=== PATIENT | female | born 1985 | race Hispanic/Latino ===

== ENCOUNTER 2016-12-30 13:11 | Emergency (ER) | payer OTHER ==
[~2016-12-30] VITALS: Ht 165.1 cm; Wt 63.5 kg
--- NOTE | 2016-12-30 13:33 | ED GENERAL ADULT ---
History of Present Illness General Chief Complaint: Abdominal Pain/Flank Pain Stated Complaint: LOWER LT ABDOMINAL PAIN Source: patient Exam Limitations: no limitations Vital Signs & Intake/Output Vital Signs & Intake/Output Vital Signs Date Time Temp Pulse Resp B/P B/P Pulse O2 O2 Flow FiO2 Mean Ox Delivery Rate 12/30 1814 97.6 79 18 136/86 100 Room Air 12/30 1425 98 Room Air 12/30 1315 97.1 91 20 113/75 98 Room Air ED Intake and Output 12/31 0000 12/30 1200 Intake Total 1000 Output Total Balance 1000 Intake, IV 1000 Patient 140 lb Weight Weight Reported by Patient Measurement Method Allergies Coded Allergies: No Known Allergies (12/30/16) Triage Note: PT TO ED C/O LLQ PAIN SINCE LAST NIGHT. C/O NAUSEA AND DIARRHEA. DENIES VOMITING. DENIES S/S. LMP LAST MONTH. Triage Nurses Notes Reviewed? yes Onset: Abrupt Duration: hour(s): Timing: recent history : No Patient currently breastfeeds: No HPI: 12/30/16 31-year-old female presents to the emergency department complaining of left lower quadrant abdominal pain. According to the patient she was in his usual state of health until today when she developed a sudden onset of left lower quadrant abdominal pain no vomiting but she did have some nausea and diarrhea. The onset of the symptoms was abrupt, the duration has been just today, the severity significant; as her symptoms required to come to the emergency department for care. She denies fever. She denies vaginal discharge. (ANTONY DIAMOND DO) Reconcile Medications Metronidazole 500 MG TABLET 1 TAB PO BID TRICHOMONIASIS Naproxen 500 MG TABLET 1 TAB PO BID PRN PAIN TAKE WITH FOOD (WOOD FRANCIS,CAROLA) Past History Travel History Traveled to [place] past 21 day No Medical History Any Pertinent Medical History? see below for history Surgical History Surgical History: tubal ligation Psychosocial History What is your primary language Turkmen Tobacco Use: Never used ETOH Use: occasional use Illicit Drug Use: denies illicit drug use Family History Hx Contributory? No (ANTONY DIAMOND DO) Review of Systems Review of Systems Constitutional: Denies: fever. EENTM: Reports: no symptoms. Respiratory: Denies: short of breath. Cardiovascular: Denies: chest pain. GI: Reports: abdominal pain. Genitourinary: Reports: no symptoms. Musculoskeletal: Reports: no symptoms. Skin: Denies: rash. Neurological/Psychological: Reports: no symptoms. Hematologic/Endocrine: Reports: no symptoms. (ANTONY DIAMOND DO) Physical Exam Physical Exam General Appearance: alert, awake, anxious, moderate distress Head: atraumatic, normal appearance Eyes: Bilateral: normal appearance, PERRL, EOMI. Ears, Nose, Throat: normal pharynx, normal ENT inspection Neck: normal inspection, supple, full range of motion Respiratory: normal breath sounds, chest non-tender Cardiovascular: regular rate/rhythm, edema Gastrointestinal: soft, tenderness (LLQ) Back: normal range of motion Extremities: normal range of motion, no edema Neurologic/Psych: no motor/sensory deficits, awake, alert, oriented x 3 Skin: intact, normal color, warm/dry Core Measures ACS in differential dx? No CVA/TIA Diagnosis: No Severe Sepsis Present: No Septic Shock Present: No (ANTONY DIAMOND DO) Progress Differential Diagnoses I considered the following diagnoses in my evaluation of the patient: [Ovarian cyst, pyelonephritis, diverticulitis, tubo-ovarian abscess, ovarian torsion, ectopic ] Plan of Care: Orders Procedure Date/time Status Add-on Test (ER Only) 12/30 1511 Active CHLAMYDIA-GC DNA PROBE 12/30 1413 Active URINALYSIS 12/30 1400 Complete HUMAN BETA HCG SCREEN 12/30 1400 Complete COMPREHENSIVE METABOLIC PANEL 12/30 1400 Complete CBC WITHOUT DIFFERENTIAL 12/30 1400 Complete Current Medications Sig/Nichol Start time Last Medication Dose Stop Time Status Admin Ceftriaxone Sodium 250 MG ONCE ONE 12/30 1745 CAN 12/30 (Rocephin) 12/30 1746 1750 Laboratory Tests 12/30/16 1441: Anion Gap 11, Estimated GFR > 60, BUN/Creatinine Ratio 8.3, Glucose 76, Calcium 9.3, Total Bilirubin 0.8, AST 19, ALT 32, Alkaline Phosphatase 64, Total Protein 7.3, Albumin 4.4, Globulin 2.9, Albumin/Globulin Ratio 1.5, Total Beta HCG NEGATIVE 12/30/16 1413: CBC w Diff NO MAN DIFF REQ, RBC 3.99 L, MCV 88.1, MCH 30.7, RDW 12.8, MPV 9.1, Gran % 78.1 H, Lymphocytes % 15.4 L, Monocytes % 5.5, Eosinophils % 0.7, Basophils % 0.3, Absolute Granulocytes 8.0 H, Absolute Lymphocytes 1.6, Absolute Monocytes 0.6, Absolute Eosinophils 0.1, Absolute Basophils 0, PUBS MCHC 34.8, Urine Color YEL, Urine Clarity CLEAR, Urine pH 7.0, Ur Specific [place] <= 1.005, Urine Protein NEG, Urine Ketones NEG, Urine Nitrite NEG, Urine Bilirubin NEG, Urine Urobilinogen 0.2, Ur Leukocyte Esterase SMALL H, Ur Microscopic SEDIMENT EXAMINED, Urine RBC RARE, Urine WBC 3-5 H, Ur Epithelial Cells FEW, Urine Bacteria FEW H, Micro UA Comment TRICHOMONAS SEEN H, Urine Hemoglobin TRACE-INTACT, Urine Glucose NEG Microbiology 12/30 141 URINE ROUT: GC DNA Probe - RECD 12/30 1412 URINE ROUT: Chlamydia DNA Probe (JAXON) - RECD 3:12 PM SIGNED OUT TO ME PENDING U/S. 4 PM PATIENT TO U/S (WOOD FRANCIS,CAROLA) Initial ED EKG: none (LOBO STARR,ANTONY Malin) Diagnostic Imaging: Viewed by Me: Ultrasound. Discussed w/RAD: Ultrasound. Radiology Impression: PATIENT: CATE DAVIS PRESENT AGE: 31 PATIENT ACCOUNT NO: [id number] : 86 LOCATION: [facility] ORDERING PHYSICIAN: ANTONY DIAMOND DO SERVICE DATE: 12/30/160 EXAM TYPE: US - US-TRANSVAGINAL EXAMINATION: US TRANSVAGINAL CLINICAL INFORMATION: Left lower quadrant pain evaluate torsion COMPARISON: None TECHNIQUE: Transabdominal and transvaginal pelvic ultrasound performed utilizing grayscale color flow and Doppler imaging FINDINGS: Uterus: 9 x 4 x 7.2 cm. Cervical length 3.2 cm. Endometrial thickness 1.2 cm. Total uterine volume 1 38 mL. Right ovary: 4.6 x 2.2 x 2.4 cm. Volume 12.7 mL. Multiple normal follicles seen. Normal flow. Left ovary: 3.3 x 1.6 x 2.6 cm for volume of 7.4 mL. Multiple normal appearing follicles seen. Normal vascular flow. 1 cm hypoechoic mass in the left ovary with increased through transmission. IMPRESSION: No evidence for ovarian torsion. Probable hemorrhagic\E\corpus luteum cyst in the left ovary DICTATED BY : EMILY GURROLA MD DATE/TIME DICTATED:12/30/161644 DATA SECURITY ADMINISTRATOR: KRIS DATE/TIME TRANSCRIBED:12/30/161644 CONFIDENTIAL, DO NOT COPY WITHOUT APPROPRIATE AUTHORIZATION. <Electronically signed in Other Vendor System> SIGNED BY: EMILY GURROLA MD 12/30/16 1700 (CAROLA MONTES MD) Departure Departure Condition: Stable Referrals: CRISTELA BUSCH MD (PCP/Family) Departure Forms: Customer Survey General Discharge Information Comments Labs were ordered including ultrasound. Patient will be signed out to Dr. Montes at 3 PM (ANTONY DIAMOND DO) Departure Time of Disposition: 1736 Disposition: HOME OR SELF CARE Clinical Impression Primary Impression: Ovarian cyst Secondary Impressions: Trichomoniasis Additional Instructions: PLEASE FOLLOW UP WITH YOUR OBGYN IN [facility]. TAKE THE PRESCRIPTION DIRECTED AT [facility]. RETURN NEEDED. Prescriptions: Current Visit Scripts Metronidazole 1 TAB PO BID #14 TAB Naproxen 1 TAB PO BID PRN PAIN #30 TAB TAKE WITH FOOD PA/BUSINESS SERVICES SALES REPRESENTATIVE Co-Sign Statement Statement: ED Attending supervision documentation- [] I saw and evaluated the patient. I have also reviewed all the pertinent lab results and diagnostic results. I agree with the findings and the plan of care as documented in the PA's/BUSINESS SERVICES SALES REPRESENTATIVE's documentation. [X] I have reviewed the ED Record and agree with the PA's/BUSINESS SERVICES SALES REPRESENTATIVE's documentation. [] Additions or exceptions (if any) to the PAs/BUSINESS SERVICES SALES REPRESENTATIVE's note and plan are summarized below: [] (CAROLA MONTES MD) Critical Care Note Critical Care Note Critical Care Time: non-applicable (ANTONY DIAMOND DO)
[2016-12-30 14:25] LABS: ABSOLUTE BASOPHIL COUNT 0 /CUMM (0.0-0.2); ABSOLUTE EOSINOPHIL COUNT 0.1 /CUMM (0.0-0.7); ABSOLUTE LYMPH COUNT 1.6 /CUMM (1.2-3.4); ABSOLUTE MONOCYTE COUNT 0.6 /CUMM (0.10-0.60); BASOPHIL % 0.3 % (0.0-2.0); EOSINOPHIL % 0.7 % (0-5); GRANULOCYTE % 78.1 % (42.2-75.2); HEMATOCRIT 35.2 % (37-47); MEAN CORPUSCULAR HGB 30.7 PG (27.0-31.0); MEAN CORPUSCULAR HGB CONC 34.8 G/DL (33.0-37.0); MEAN CORPUSCULAR VOLUME 88.1 FL (81.0-99.0); MEAN PLATELET VOLUME 9.1 FL (7.4-10.4); PLATELET COUNT 250 /CUMM (130-400); RBC DISTRIBUTION WIDTH 12.8 % (11.5-14.5); RED BLOOD CELL CT 3.99 /CUMM (4.20-5.40); WHITE BLOOD CELL COUNT 10.3 /CUMM (4.8-10.8)
--- NOTE | 2016-12-30 17:00 | ULTRASOUND REPORT ---
EXAMINATION: US TRANSVAGINAL CLINICAL INFORMATION: Left lower quadrant pain evaluate torsion COMPARISON: None TECHNIQUE: Transabdominal and transvaginal pelvic ultrasound performed utilizing grayscale color flow and Doppler imaging FINDINGS: Uterus: 9 x 4 x 7.2 cm. Cervical length 3.2 cm. Endometrial thickness 1.2 cm. Total uterine volume 1 38 mL. Right ovary: 4.6 x 2.2 x 2.4 cm. Volume 12.7 mL. Multiple normal follicles seen. Normal flow. Left ovary: 3.3 x 1.6 x 2.6 cm for volume of 7.4 mL. Multiple normal appearing follicles seen. Normal vascular flow. 1 cm hypoechoic mass in the left ovary with increased through transmission. IMPRESSION: No evidence for ovarian torsion. Probable hemorrhagic\E\corpus luteum cyst in the left ovary
[2016-12-30] MEDS ORDERED: NAPROXEN500 M2 PO (17:36)
[2016-12-30] MEDS ORDERED: METRONIDAZOLE500 M1 PO (17:36)
[2016-12-30 18:14] VITALS: BP 136/86
== END 2016-12-30 18:01 ==
LOC: ERH 13:11
PROVIDERS: Emergency Medicine
DX: N83.202 Unspecified ovarian cyst, left side (principal); A59.9 Trichomoniasis, unspecified
CPT/HCPCS: 81001; 87491; 87591; 96360; 96372; J0696

== ENCOUNTER 2017-02-07 06:37 | Inpatient (IN) | payer OTHER ==
[~2017-02-07] VITALS: Ht 165.1 cm; Wt 63.5 kg
[~2017-02-07 06:37] MED LIST: METRONIDAZOLE500 M1 PO; NAPROXEN500 M2 PO
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
--- NOTE | 2017-02-07 06:48 | NUR ---
IV ACCESS ESTABLISHED LFA 22G BY HAILEY MELGAR. H OF TUBAL LIGATION. BLOODS DRAWN AND SENT TO LAB. BOYFRIEND AT BEDSIDE
--- NOTE | 2017-02-07 06:53 | NUR ---
LABS DRAWN AND SENT BY THIS RN (SST, LAV, BLUE,. CHU, PINK)
--- NOTE | 2017-02-07 06:54 | NUR ---
PT MEDICATED WITH NS LITER #1 BOLUS PER EMAR
--- NOTE | 2017-02-07 06:55 | NUR ---
PT MEDICATED WITH 4MG ZOFRAN IV, 30MG TORADOL IV, AND 4MG MORPHINE IV PER EMAR BY RN ANTONIO
[2017-02-07 06:58] LABS: ABSOLUTE BASOPHIL COUNT 0 /CUMM (0.0-0.2); ABSOLUTE EOSINOPHIL COUNT 0 /CUMM (0.0-0.7); ABSOLUTE GRANULOCYTE CT 14.1 /CUMM (1.4-6.5); ABSOLUTE LYMPH COUNT 1.3 /CUMM (1.2-3.4); ABSOLUTE MONOCYTE COUNT 0.5 /CUMM (0.10-0.60); BASOPHIL % 0.1 % (0.0-2.0); EOSINOPHIL % 0.2 % (0-5); GRANULOCYTE % 88.3 % (42.2-75.2); HEMATOCRIT 40.5 % (37-47); MEAN CORPUSCULAR HGB 30.2 PG (27.0-31.0); MEAN CORPUSCULAR HGB CONC 33.5 G/DL (33.0-37.0); MEAN CORPUSCULAR VOLUME 90.3 FL (81.0-99.0); MEAN PLATELET VOLUME 8.8 FL (7.4-10.4); PLATELET COUNT 272 /CUMM (130-400); RBC DISTRIBUTION WIDTH 12.7 % (11.5-14.5); RED BLOOD CELL CT 4.48 /CUMM (4.20-5.40); WHITE BLOOD CELL COUNT 15.9 /CUMM (4.8-10.8)
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
--- NOTE | 2017-02-07 07:32 | NUR ---
PT SLEEPING AT THIS TIME, BOYFRIEND REMAINS AT BEDSIDE.
--- NOTE | 2017-02-07 07:53 | NUR ---
PT TO CT VIA STRETCHER AT THIS TIME.
--- NOTE | 2017-02-07 08:01 | NUR ---
PT RETURNS TO ROOM FROM CT, PT STATING "THE PAIN IS COMING BACK TO THE MIDDLE OF MY STOMACH NOW", MED WITH TORADOL 30MG IV, IVF' INFUSING ORDERED. PT AWAITING US.
--- NOTE | 2017-02-07 08:30 | NUR ---
PT TO US.
--- NOTE | 2017-02-07 08:43 | CT SCAN REPORT ---
EXAMINATION: CT ABDOMEN AND PELVIS WITH CONTRAST CLINICAL INFORMATION: Periumbilical abdominal pain. COMPARISON: Previous pelvic ultrasound 12/30/2016. TECHNIQUE: Multidetector volumetric imaging was performed of the abdomen and pelvis before and after the IV administration of 95 mL of Optiray intravenous contrast. Sagittal and coronal reformatted images were obtained on the technologist's workstation. DLP: 264 mGy-cm FINDINGS: LUNG BASES: The visualized lung bases are unremarkable. LIVER, GALLBLADDER, AND BILIARY TREE: The liver is normal in size, shape, and attenuation. No focal hepatic lesion or biliary ductal dilatation is present. The gallbladder is unremarkable with no evidence of radiopaque gallstones, gallbladder wall thickening, or obvious pericholecystic inflammatory changes. PANCREAS: Unremarkable. SPLEEN: Unremarkable. ADRENAL GLANDS: Unremarkable. KIDNEYS AND URETERS: The kidneys are normal in size, shape, and attenuation. No hydronephrosis, hydroureter, or calculi seen. No perinephric stranding. BLADDER: Unremarkable. GASTROINTESTINAL TRACT: The appendix is normal. There is evidence of diverticulosis. There is wall thickening and stranding of the fat of the distal left colon and sigmoid colon suggestive of diverticulitis or possibly colitis. There is a 2.5 x 2 cm air collection inferior to the sigmoid colon questionable for extraluminal air or possible contained perforation. There is an adjacent 4 x 5 cm fluid containing cystic structure in the left pelvis. It is uncertain whether this represents an abscess or a left ovarian cyst. Small and large bowel is otherwise normal. No free air is seen. ABDOMINAL WALL: No significant hernia is appreciated. LYMPH NODES: No enlarged lymph nodes are seen. There is a small amount of ascites in the pelvis. VASCULAR: Unremarkable. PELVIC VISCERA: The uterus and right adnexa are unremarkable. There is a 4 x 5 cm cyst or fluid collection in the left pelvis. Again, it is uncertain whether this represents a left ovarian cyst or could represent a left pelvic abscess. Follow up pelvic ultrasound recommended. There is a small amount of ascites in the pelvis. This may be slightly complex with Hounsfield units measuring 30 OSSEOUS STRUCTURES: Unremarkable. IMPRESSION: Diverticulosis. Long segment wall thickening of the distal left and sigmoid colon. Differential includes diverticulitis and colitis. 2 x 2.5 cm extraluminal air collection adjacent to the sigmoid colon questionable for contained perforation. 4 x 5 cm cystic lesion or fluid collection in the left pelvis. Differential would include a left ovarian cyst and abscess. Follow up pelvic ultrasound recommended. Small amount of fluid in the pelvis.
--- NOTE | 2017-02-07 09:37 | ULTRASOUND REPORT ---
EXAMINATION: US TRANSVAGINAL CLINICAL INFORMATION: Periumbilical abdominal pain. History of ovarian cyst. COMPARISON: CT scan of same day. TECHNIQUE: Transabdominal imaging was initially performed but because of limited visualization, transvaginal imaging was also performed. FINDINGS: UTERUS: The uterus is normal in size and appearance and is anteverted. Size measures 9.0 x 4.9 x 5.3 centers. Endometrial thickness measures 0.6 cm. Cervical length measures 3.6 cm. RIGHT OVARY: The right ovary is not identified. The ovary is unremarkable appearance on the recent CT scan. LEFT OVARY: The cyst seen on CT scan corresponds to a complex cyst measuring 3.9 x 2.4 x 3.3 cm. The appearance suggests hemorrhagic cyst. Abscess could cause similar appearance. Normal ovarian parenchyma is seen around the cyst showing normal color and spectral Doppler blood flow with normal venous and arterial waveforms with no evidence for torsion. Overall size of the left ovary measures 4.4 x 3.7 x 4.7 cm with a volume of 40 mL. There is a small to moderate amount of slightly complex free fluid in the pelvis. IMPRESSION: 1. Complex cyst left ovary consistent with hemorrhagic cyst. Abscess is possible and correlation with clinical findings will be helpful. Follow-up in 6 weeks' showing resolution is suggested. 2. Normal parenchyma is seen around the cyst in the left ovary with normal blood flow and no evidence for torsion. 3. Small to moderate slightly complex free fluid.
--- NOTE | 2017-02-07 10:31 | NUR ---
SURGICAL PA TEDDY IN TO EVAL.
--- NOTE | 2017-02-07 11:04 | NUR ---
PT C/O "CRUSHING CHEST PAIN, FEELS BETTER WHEN I BREATH THROUGH MY MOUTH", O2 NC 2L PLACED FOR COMFORT, VSS, EKG DONE AND SHOWN TO DR FITZGERALD.
--- NOTE | 2017-02-07 11:29 | NUR ---
MED WITH ATIVAN 0.5MG IV, IV FLAGYL 500MG INFUSING WITHOUT DIFFICULTY AT THIS TIME.
--- NOTE | 2017-02-07 12:47 | NUR ---
PER SURGICAL KILEY ESPINAL PLAN IS FOR PATIENT TO BE ADMITTED UNDER DR BENNETT SERVICES AND WILL NOT BE GOING TO THE OR FROM THE ED. UNSURE AT THIS TIME OF WHEN SHE MAY BE GOING TO OR
--- NOTE | 2017-02-07 12:59 | NUR ---
MEDICATED WITH ROCEPHIN PER ORDERS SURGICAL PA TEDDY
--- NOTE | 2017-02-07 13:29 | NUR ---
PT REQUESTS ICE CHIPS, OK PER SURGICAL PA TEDDY
--- NOTE | 2017-02-07 13:44 | NUR ---
PT AMBULATORY TO BATHROOM, URINE SPECIMEN CUP PROVIDED FOR SPECIMEN COLLECTION
--- NOTE | 2017-02-07 14:15 | NUR ---
PT MEDICATED WITH MORPHINE FOR PAIN /10 PER REQUEST/ORDERS.
--- NOTE | 2017-02-07 14:32 | NUR ---
PT COMPLAINS OF CHEST PAIN, RATES 10/10 POINTS TO L CHEST WALL. STATES IT FEELS THE SAME IT DID THIS MORNING. SURGICAL KILEY ESPINAL PAGED REGARDING SAME.
--- NOTE | 2017-02-07 14:46 | NUR ---
KILEY ESPINAL REQUESTED MD FITZGERALD TO ASSESS PATIENT WHO RESPONDED PATIENT WAS UNDER INPATIENT CARE AT THIS TIME. AGAIN SPOKE WITH KILEY ESPINAL WHO THEN ADVISED HE WOULD DO A CARDIOLOGY CONSULT. DR CROOK IN DEPARTMENT AT THIS TIME, SPOKE WITH KILEY ESPINAL AND IS CURRENTLY AT BEDSIDE.
--- NOTE | 2017-02-07 14:47 | Admission Core Measures ---
Admission Lab Results I reviewed the following labs: Laboratory Tests 02/07 0650 Chemistry Sodium (137 - 145 mmol/L) 143 Potassium (3.5 - 5.1 mmol/L) 4.0 Chloride (98 - 107 mmol/L) 109 H Carbon Dioxide (22 - 30 mmol/L) 18 L Anion Gap (5 - 16) 16 BUN (7 - 17 mg/dL) 4 L Creatinine (0.5 - 1.0 mg/dL) 0.6 Estimated GFR (>60 ml/min) > 60 BUN/Creatinine Ratio (7 - 25 %) 6.7 L Glucose (65 - 99 mg/dL) 121 H Calcium (8.4 - 10.2 mg/dL) 9.5 Total Bilirubin (0.2 - 1.3 mg/dL) 0.4 AST (14 - 36 U/L) 22 ALT (9 - 52 U/L) 32 Alkaline Phosphatase (<127 U/L) 67 Total Protein (6.3 - 8.2 g/dL) 8.0 Albumin (3.5 - 5.0 g/dL) 5.1 H Globulin (1.9 - 4.2 gm/dL) 2.9 Albumin/Globulin Ratio (1.1 - 2.2 %) 1.8 Amylase (30 - 110 U/L) 55 Lipase (23 - 300 U/L) 35 Total Beta HCG (NEGATIVE) NEGATIVE Hematology CBC w Diff NO MAN DIFF REQ WBC (4.8 - 10.8 /CUMM) 15.9 H RBC (4.20 - 5.40 /CUMM) 4.48 Hgb (12.0 - 16.0 G/DL) 13.5 Hct (37 - 47 %) 40.5 MCV (81.0 - 99.0 FL) 90.3 MCH (27.0 - 31.0 PG) 30.2 RDW (11.5 - 14.5 %) 12.7 Plt Count (130 - 400 /CUMM) 272 MPV (7.4 - 10.4 FL) 8.8 Gran % (42.2 - 75.2 %) 88.3 H Lymphocytes % (20.5 - 51.1 %) 8.4 L Monocytes % (1.7 - 9.3 %) 3.0 Eosinophils % (0 - 5 %) 0.2 Basophils % (0.0 - 2.0 %) 0.1 Absolute Granulocytes (1.4 - 6.5 /CUMM) 14.1 H Absolute Lymphocytes (1.2 - 3.4 /CUMM) 1.3 Absolute Monocytes (0.10 - 0.60 /CUMM) 0.5 Absolute Eosinophils (0.0 - 0.7 /CUMM) 0 Absolute Basophils (0.0 - 0.2 /CUMM) 0 PUBS MCHC (33.0 - 37.0 G/DL) 33.5 Admission Meds I reviewed the following Meds: Current Medications Sig/Nichol Start time Last Medication Dose Stop Time Status Admin Acetaminophen 1,000 MG Q6P PRN 02/07 1300 AC (Ofirmev) N/A 1 UNIT (No Carrier) Ceftriaxone Sodium 2,000 MG Q24H 02/08 1300 AC (Rocephin) Ceftriaxone Sodium 1,000 MG DAILY 02/07 1200 CAN (Rocephin) Dextrose/Sodium 1,000 ML .[id number] 02/07 1245 AC 02/07 Chloride 1317 (D5W-1/2 Normal Saline 1000ML) Heparin Sodium 5,000 UNIT Q8 02/07 1400 AC 02/07 (Porcine) 1427 Ketorolac 30 MG Q6P PRN 02/07 1300 AC Tromethamine (Toradol) Lorazepam 0.5 MG Q4P PRN 02/07 1300 AC (Ativan) Metronidazole 500 MG Q8H 02/07 1930 AC (Flagyl) N/A 1 UNIT (No Carrier) Morphine Sulfate 4 MG Q4-6 PRN PRN 02/07 1300 AC 02/07 (Morphine) 1417 Ondansetron HCl 4 MG Q8P PRN 02/07 1245 AC (Zofran) Acute Coronary Syndrome Inclusion Criteria ACS Diagnosis No Inpatient Core Measures LDL Reminder: If No, please order W/I first 24hr of stay Congestive Heart Failure Inclusion Criteria CHF Diagnosis No Cerebrovascular accident Inclusion Criteria CVA/TIA Diagnosis No Inpatient Core Measures Bedside Swallow Eval Reminder: If BSE failed, place ST order Antithrombotic Reminder: Order Antithrombotic Medication by end of day 2 Antithrombotic Reminder: Document Reason Antithrombotic Not ordered by end of day 2 AFIB/Flutter Reminder: If Present, add to problem list AFIB/Flutter Reminder: Order Anticoag Medication for pts with AFIB/Flutter Atherosclerosis Reminder: If Present, add to problem list LDL Reminder: If No, please order W/I first 24hr of stay PT Order Reminder: If No, please order Venous thromboembolism Inpatient Core Measures VTE Risk Factors: No Risk Factors [facility] prophylaxis d/t No contraindications No VTE Pharm Prophylaxis d/t No contraindications Inclusion Criteria - Per Current guidelines, there needs to be overlap - treatment for the first 5 days of Warfarin therapy. - Parenteral Anticoagulation (IV or SC) needs to be - given along with Warfarin therapy. VTE Diagnosis No VTE Type NONE VTE Confirmed by (Test) NONE Problem List As ranked by this Provider includes Assessment & Plan 1. Perforation of intestine due to diverticulitis of gastrointestinal tract HOME MEDS Home Med List No Known Home Medications
--- NOTE | 2017-02-07 15:00 | NUR ---
BED ASSIGNMENT 232 REPORT TO HAILEY BAHENA
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
--- NOTE | 2017-02-07 15:19 | NUR ---
spoke with dr mauricio and eric narvaez multiple times per both patient may go to [facility] and Dr Mauricio is recommending a repeat EKG done "later this afternoon". Eric Narvaez verbalized he would like the EKG done at 18:00 and stated he would put the order in.
--- NOTE | 2017-02-07 15:40 | NUR ---
RECEIVED REPORT ON PT AND NOTED ON STRETCHER AND DENIED ANY COMPLAINTS. NURSE SHRUTI WAS INFORMED OF CARDIAC CLEARANCE AND NEW UPDATE. PT LEFT FOR FLOOR
[2017-02-07 16:33] VITALS: BP 122/72
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
--- NOTE | 2017-02-07 18:48 | Cons- Cardiology ---
General Information and HPI Consulting Request Date of Consult: 02/07/17 Requested By: ANDI FRY DO Reason for Consult: Atypical chest discomfort Source of Information: patient, family Exam Limitations: no limitations History of Present Illness: Ms. Hernandez is a 31-year-old female with no significant past medical history presents with acute onset of lower abdominal pain that started approximately 4 AM this morning. She states that just prior to this onset abdominal pain she had a soft bowel movement without difficulty. She has no urinary complaints at this time. She denies any past history of similar abdominal pain. CAT scan this morning reveals diverticulitis with perforation and small fluid collection at the sigmoid colon. 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 She appears emotionally distressed. She also complained of 10 out of 10 crushing left chest pain which was evaluated by the emergency room staff, Dr. Snider, at which time an EKG was done which he cleared her of this being a cardiac event and he felt as though this was anxiety related to her sister's recent passing. She was given Ativan with some relief. At the time of my visit, the patient's primary complaint was abdominal pain. She notes intermittent waves of left sided chest discomfort which she notes that radiates upwards from her abdomen and is clearly worse with deep inspiration. In between inspirations, the discomfort dissipates. She has no prior history of chest discomfort or cardiac symptoms and has always been active. She denies any cardiovascular risk factors. Allergies/Medications Allergies: Coded Allergies: No Known Allergies (12/30/16) Home Med List: No Known Home Medications Current Medications: Current Medications Sig/Nichol Start time Last Medication Dose Route Stop Time Status Admin Acetaminophen 1,000 MG Q6P PRN 02/07 1300 AC N/A 1 UNIT IV Ampicillin Sodium/ 0 .STK-MED ONE 02/07 0957 DC Sulbactam Sodium .ROUTE Ampicillin Sodium/ 3,000 MG ONCE ONE 02/07 0945 DC 02/07 Sulbactam Sodium IV 02/07 1014 0958 Sodium Chloride 100 ML Ceftriaxone Sodium 2,000 MG Q24H 02/08 1300 AC IV Ceftriaxone Sodium 2,000 MG Q24H 02/07 1300 DC 02/07 IV 1259 Ceftriaxone Sodium 0 .STK-MED ONE 02/07 1259 DC .ROUTE Ceftriaxone Sodium 1,000 MG DAILY 02/07 1200 CAN IV Dextrose/Sodium 1,000 ML .[id number] 02/07 1245 AC 02/07 Chloride IV 1317 Heparin Sodium 0 .STK-MED ONE 02/07 1427 DC (Porcine) .ROUTE Heparin Sodium 5,000 UNIT Q8 02/07 1400 AC 02/07 (Porcine) SC 1427 Ketorolac 30 MG Q6P PRN 02/07 1300 AC 02/07 Tromethamine IV 1643 Ketorolac 0 .STK-MED ONE 02/07 0803 DC Tromethamine .ROUTE Ketorolac 30 MG ONCE ONE 02/07 0730 DC 02/07 Tromethamine IV 02/07 0731 0801 Ketorolac 30 MG ONCE ONE 02/07 0700 DC 02/07 Tromethamine IV 02/07 0701 0655 Ketorolac 0 .STK-MED ONE 02/07 0659 DC Tromethamine .ROUTE Lorazepam 0.5 MG Q4P PRN 02/07 1300 AC IV Lorazepam 0 .STK-MED ONE 02/07 1121 DC .ROUTE Lorazepam 0.5 MG ONCE ONE 02/07 1100 DC 07 IV 02/07 1101 1127 Metronidazole 500 MG Q8H 02/07 1930 AC N/A 1 UNIT IV Metronidazole 500 MG Q8H 02/07 1130 DC 02/07 N/A 1 UNIT IV 1128 Morphine Sulfate 0 .STK-MED ONE 02/07 1421 DC .ROUTE Morphine Sulfate 4 MG Q4-6 PRN PRN 02/07 1300 AC 02/07 IV 1814 Morphine Sulfate 4 MG ONCE ONE 02/07 0700 DC 02/07 IV 02/07 0701 0655 Morphine Sulfate 0 .STK-MED ONE 02/07 0700 DC .ROUTE Ondansetron HCl 4 MG Q8P PRN 02/07 1245 AC IV Ondansetron HCl 4 MG ONCE ONE 02/07 0700 DC 02/07 IV 02/07 0701 0655 Ondansetron HCl 0 .STK-MED ONE 02/07 0659 DC .ROUTE Sodium Chloride 1,000 ML BOLUS ONE 02/07 0945 DC 02/07 IV 02/07 1044 0958 Sodium Chloride 1,000 ML BOLUS ONE 02/07 0700 DC 02/07 IV 02/07 0759 0654 Past History Travel History Traveled to [place] past 21 day No Medical History Blood Transfusion Hx: No Neurological: migraine EENT: NONE Cardiovascular: NONE Respiratory: NONE Gastrointestinal: NONE Hepatic: hepatitis A Renal: NONE Musculoskeletal: NONE Psychiatric: NONE Endocrine: NONE Blood Disorders: anemia Cancer(s): cervical cancer MEDICAL ASSISTANT PRN/Reproductive: OVARIAN CYSTS Surgical History Surgical History: tubal ligation Psychosocial History Where Do You Live? Home Smoking Status: Former Smoker ETOH Use: occasional use Illicit Drug Use: denies illicit drug use Exam & Diagnostic Data Vital Signs and I&O Vital Signs Date Time Temp Pulse Resp B/P B/P Pulse O2 O2 Flow FiO2 Mean Ox Delivery Rate 02/07 1633 100.0 92 18 122/72 99 Room Air 02/07 1444 97.0 80 123/76 02/07 1216 98.0 88 20 115/71 02/07 1111 97.8 77 20 119/76 96 Room Air 02/07 1105 98.3 78 18 115/69 100 Nasal 2.0L Cannula 02/07 1101 98 Room Air Room Air 02/07 0803 96.8 70 16 109/62 96 Room Air 02/07 0641 97.1 75 20 109/76 98 Room Air Intake & Output 02/07 1600 02/07 0800 07/ 0000 / 1600 /08 0800 / 0000 Intake Total 1100 1000 Output Total Balance 1100 1000 Intake, IV 1100 1000 Patient 140 lb Weight Weight Reported by Patient Measurement Method Physical Exam: General Appearance Alert, Oriented X3, Cooperative; mild distress HEENT PERRLA Cardiovascular Regular Rate, Normal S1, Normal S2, no murmur, no chest wall tenderness Lungs Clear to Auscultation, Normal Air Movement Abdomen abdomen is diffusely tender to palpation, there is some mild guarding to palpation, bowel sounds are active, mild peritonitis is noted, abdomen is soft and nondistended Neurological Strength at 5/5 X4 Ext, Normal Tone, non focal Extremities No Edema, Normal Pulses Labs/John Results: Laboratory Tests 02/07 02/07 1740 0650 Chemistry Sodium (137 - 145 mmol/L) 143 Potassium (3.5 - 5.1 mmol/L) 4.0 Chloride (98 - 107 mmol/L) 109 H Carbon Dioxide (22 - 30 mmol/L) 18 L Anion Gap (5 - 16) 16 BUN (7 - 17 mg/dL) 4 L Creatinine (0.5 - 1.0 mg/dL) 0.6 Estimated GFR (>60 ml/min) > 60 BUN/Creatinine Ratio (7 - 25 %) 6.7 L Glucose (65 - 99 mg/dL) 121 H Calcium (8.4 - 10.2 mg/dL) 9.5 Total Bilirubin (0.2 - 1.3 mg/dL) 0.4 AST (14 - 36 U/L) 22 ALT (9 - 52 U/L) 32 Alkaline Phosphatase (<127 U/L) 67 Troponin I (< 0.11 ng/ml) Pending < 0.01 Total Protein (6.3 - 8.2 g/dL) 8.0 Albumin (3.5 - 5.0 g/dL) 5.1 H Globulin (1.9 - 4.2 gm/dL) 2.9 Albumin/Globulin Ratio (1.1 - 2.2 %) 1.8 Amylase (30 - 110 U/L) 55 Lipase (23 - 300 U/L) 35 Total Beta HCG (NEGATIVE) NEGATIVE Hematology CBC w Diff NO MAN DIFF REQ WBC (4.8 - 10.8 /CUMM) 15.9 H RBC (4.20 - 5.40 /CUMM) 4.48 Hgb (12.0 - 16.0 G/DL) 13.5 Hct (37 - 47 %) 40.5 MCV (81.0 - 99.0 FL) 90.3 MCH (27.0 - 31.0 PG) 30.2 RDW (11.5 - 14.5 %) 12.7 Plt Count (130 - 400 /CUMM) 272 MPV (7.4 - 10.4 FL) 8.8 Gran % (42.2 - 75.2 %) 88.3 H Lymphocytes % (20.5 - 51.1 %) 8.4 L Monocytes % (1.7 - 9.3 %) 3.0 Eosinophils % (0 - 5 %) 0.2 Basophils % (0.0 - 2.0 %) 0.1 Absolute Granulocytes (1.4 - 6.5 /CUMM) 14.1 H Absolute Lymphocytes (1.2 - 3.4 /CUMM) 1.3 Absolute Monocytes (0.10 - 0.60 /CUMM) 0.5 Absolute Eosinophils (0.0 - 0.7 /CUMM) 0 Absolute Basophils (0.0 - 0.2 /CUMM) 0 PUBS MCHC (33.0 - 37.0 G/DL) 33.5 Diagnostic Data EKG Results NSR; NOrmal Other Results Abdominal CT: IMPRESSION: Diverticulosis. Long segment wall thickening of the distal left and sigmoid colon. Differential includes diverticulitis and colitis. 2 x 2.5 cm extraluminal air collection adjacent to the sigmoid colon questionable for contained perforation. 4 x 5 cm cystic lesion or fluid collection in the left pelvis. Differential would include a left ovarian cyst and abscess. Follow up pelvic ultrasound recommended. Small amount of fluid in the pelvis Assessment/Plan Assessment/Plan Assessment: 1. Atypical chest discomfort - At the present time the patient's chest discomfort is very atypical for any cardiac etiology. The discomfort is clearly pleuritic in nature and her examination and ECG are otherwise normal. I suspect that the symptoms are referred from her abdominal issues and possibly related to diaphragmatic irritation. 2. Diverticular perforation 3. History of migraines. Recommendations: - I believe that the patient can safely be admitted to the general medical floor - Please repeat ECG later this evening and again in the AM - Check troponin now and again in 4-6 hours. - If symptoms persist, check echocardiogram prior to discharge to exclude pericardial effusion, etc. - Please call me with any changes. - Discussed with surgical PA Consult Acknowledgment - Thank you for your consult request.
[2017-02-07 20:02] VITALS: BP 120/70
--- NOTE | 2017-02-07 20:04 | NUR ---
PT C/O INCREASED PAIN 10/10 UNRELIEVED BY PREVIOUS MORPHINE AND IV TORADOL. SURGICAL PA TEDDY NOTIFIED. PER SURGICAL PA, GIVE IV TYLENOL. PT VITALS: 122/70 MANUALLY LYING, P 105, T 101.4, RR 18, 97% ON RA. SURGICAL PA AWARE OF VITAL SIGNS.
--- NOTE | 2017-02-07 20:29 | PN- General Surgery ---
Subjective Subjective: PATIENT CONT TO C/O 05/11 ABDOMENAL PAIN Objective Vital Signs and I&Os Vital Signs Date Time Temp Pulse Resp B/P B/P Pulse O2 O2 Flow FiO2 Mean Ox Delivery Rate 02/08 2008 101.4 02/07 2002 101.4 105 18 120/70 97 Room Air 02/07 1633 100.0 92 18 122/72 99 Room Air 02/07 1444 97.0 80 123/76 02/07 1216 98.0 88 20 115/71 02/07 1111 97.8 77 20 119/76 96 Room Air 02/07 1105 98.3 78 18 115/69 100 Nasal 2.0L Cannula 02/07 1101 98 Room Air Room Air 02/07 0803 96.8 70 16 109/62 96 Room Air 02/07 0641 97.1 75 20 109/76 98 Room Air Intake & Output 02/07 1600 09 0800 / 0000 / 1600 02/06 0800 07/08 0000 Intake Total 1100 1000 Output Total Balance 1100 1000 Intake, IV 1100 1000 Patient 140 lb Weight Weight Reported by Patient Measurement Method Physical Exam: SKIN WRM TO TOUCH ABDOMEN SOFT GUARDING TO LIGHT PALP IN ALL FOUR QUADRANTS +PSOAS SIGN Assessment/Plan Assessment/Plan WORSENING CLINICAL PICTURE CASE WS DISCUSSED DR FRY PLAN REPEAT CT SCAN OF ABDOMEN W/O CONTRAST INCREASE IVF TITRATE PAIN MEDS IV TYLENOL NOW FOR FEVER Core Measures/Miscellaneous Venous Thromboembolism VTE Risk Factors: No Risk Factors VTE Contraindications: No Contraindications VTE Diagnosis: No VTE Type: NONE VTE Confirmed by (Test): NONE Beta Zain Is Beta Zain a Home Med? No Antibiotics Is Patient on Antibiotics? Yes
--- NOTE | 2017-02-07 20:39 | NUR ---
PT DOWN TO CT SCAN AT THIS TIME VIA STRETCHER.
--- NOTE | 2017-02-07 21:01 | NUR ---
PT BACK FROM CT SCAN AT THIS TIME. AFTER ADMIN OF IV DILAUDID PT STATES "PAIN IS TOLERABLE NOW". RESTING IN BED, FAMILY AT BEDSIDE. PRECAUTIONS MAINTAINED.
--- NOTE | 2017-02-07 21:19 | CT SCAN REPORT ---
EXAMINATION: CT ABDOMEN AND PELVIS WITHOUT CONTRAST CLINICAL INFORMATION: Follow-up diverticulitis with possible perforation noted earlier today. COMPARISON: Exam same day TECHNIQUE: Multidetector volumetric imaging was performed from the superior aspect of the liver through the pubic symphysis. Sagittal and coronal reformatted images were obtained on the technologist's workstation. DLP: 337 mGy-cm FINDINGS: LUNG BASES: The visualized lung bases are unremarkable. LIVER, GALLBLADDER, AND BILIARY TREE: The liver is normal in size, shape, and attenuation. No focal hepatic lesion or biliary ductal dilatation is present. Layering contrast or sludge within the gallbladder lumen since previous presumably representing vicarious excretion of contrast. No acute inflammatory changes. PANCREAS: Unremarkable. SPLEEN: Unremarkable. ADRENAL GLANDS: Unremarkable. KIDNEYS AND URETERS: The kidneys are normal in size, shape, and attenuation. No hydronephrosis, hydroureter, or calculi seen. No perinephric stranding. BLADDER: Unremarkable. GASTROINTESTINAL TRACT: Long segment of inflammatory changes distal colon from the level of the distal descending to involve essentially the entire sigmoid colon. There are diverticula noted within these segments indicating relatively pronounced diverticulitis. Left adnexal fluid collection progressive now measuring approximately 5.7 x 4.4 cm most consistent with a peridiverticular abscess. No obstruction. No other focal lesion new in the interim. ABDOMINAL WALL: No significant hernia is appreciated. There are fat-containing lesions within both lateral gluteal subcutaneous tissues most consistent with lipomas or fat necrosis previous trauma. No acute findings. LYMPH NODES: Normal. VASCULAR: Unremarkable. PELVIC VISCERA: Unremarkable. OSSEOUS STRUCTURES: Unremarkable. IMPRESSION: 1. There is now marlyn perforation and free air in the upper abdomen from progressive severe diverticulitis. 2. Fluid collection within the left pelvis suspicious for a peridiverticular abscess progressive since baseline exam earlier the same day. This critical result was discussed with Dr. Martinez at 9:10 PM on 02/07/2017 and it was ascertained that the content and urgency of the report was understood at the time of direct communication.
[2017-02-07 21:25] VITALS: BP 110/70
--- NOTE | 2017-02-07 21:37 | NUR ---
PRE OP SCRUB COMPLETED, PRE OPERATIVE CHECKLIST COMPLETED. AWAITING DISTRIBUTION. PT AND FAMILY AWARE OF POC. PRECAUTIONS MAINTAINED.
--- NOTE | 2017-02-07 22:31 | NUR ---
PT DOWN TO OR VIA STRETCHER AT THIS TIME.
--- NOTE | 2017-02-08 01:32 | Operative Report ---
Operative/Inv Procedure Report Surgery Date: 02/08/17 Name of Procedure: Exploratory laparotomy, sigmoid resection, end colostomy (Hartmanns procedure) Pre-Operative Diagnosis: Perforated diverticulitis, diffuse peritonitis Post-Operative Diagnosis: Same Estimated Blood Loss: 50ml to 100ml Surgeon/Senior Materials Analyst: ANDI FRY DO Anesthesia: general endotracheal tube IV Fluids: 2100 cc Drains: 10 FR RLQ NISHA Drain, colostomy Specimens: Sigmoid colon Complications: None Condition: Stable Operative Indication: This is a 31-year-old female that presented to the emergency room with sudden onset of abdominal pain. The patient underwent a CT scan on admission which showed diverticulitis with a small abscess. The patient was admitted made nothing by mouth and started on IV antibiotics. Throughout the day however patients abdominal exam worsened and she now had diffuse peritonitis. The patient also spiked a fever and became tachycardic. A repeat CT scan was performed which showed diffuse free air in the abdominal cavity and an increase in the size of the abscess. Given the patient's deteriorating clinical status and CT findings, an exploratory laparotomy with colon resection and an end colostomy was discussed in detail. All risks including but not limited to bleeding, infection, abscess formation requiring drainage, possible need for further surgery, and injury to surrounding structures were discussed in detail. The patient and the family understood everything and decided to proceed. Operative/Procedure Note Note: The patient was brought to the operating room and placed on the table in supine position. Venodyne stockings were placed and adequate general endotracheal anesthesia was obtained. A TAP block was performed by anesthesia, Jose catheter was inserted, and the patient was prepped and draped in standard surgical fashion. A midline incision was made approximately 2-3 cm above the umbilicus down to the pubis. The incision was carried through the subcutaneous tissue to the fascia. The fascia was opened until we entered the peritoneum. Of note patient did have a prior abdominoplasty so it was difficult to identify the midline. Once the abdominal cavity was accessed the fascia was opened the length of the incision. Right away copious amount of purulent fluid was noted and suctioned out. The abdominal cavity was explored. Right away noted a portion of the sigmoid colon adherent to the sidewall and with dissection in abscess was identified and drained. The portion of the sigmoid colon was dissected away from the sidewall using blunt dissection until the sigmoid colon was freely up in the air. We then noted a portion of the sigmoid colon approximately 15 cm in length that appeared thickened and inflamed, no obvious large perforation was noted along that segment. We then identified healthy descending colon proximal to the inflamed bowel, the colon was then transected using a 80 millimeter blue JASMYN staple load. The sigmoid colon mesentery was then divided using LigaSure device maintaining hemostasis until what appeared to be the sigmoid rectal junction. At that point the colon was divided distally using an 80 mm blue JASMYN staple load. Staple line was examined and some bleeding was noted, that was controlled using 3-0 silk interrupted sutures. 2 interrupted Prolene sutures were placed on the staple line of the rectal stump for identification at the eventual reversal. The abdominal cavity was then irrigated with this approximately 5-6 L of warm normal saline until clear. The abdominal cavity was then examined and no further pathology was noted, no bleeding was noted. The descending colon was then mobilized along the white line of Toldt to assure adequate length of colon for creation of an end colostomy. Once it was adequately mobilized an area on the anterior abdominal wall was excised circumferentially down to the fascia. The fascia was then opened, the muscle was split, and the peritoneum was opened. The opening was dilated to allow adequate room for the colon. The descending colon was then brought through the opening. We had adequate room and adequate length of the bowel. The bowel appeared pink and viable. Following this a stab incision was made in the right lower quadrant and a 10 [place] flat NISHA drain was placed through the incision into the pelvis. The midline fascia was closed using #1 PDS suture. The wound was irrigated. The skin was closed using danyel. Sterile dressing was placed with packing in between the danyel. We then brought our attention to the colostomy, the stoma was opened and matured. The stoma was probed and appeared to have adequate room. The ostomy remained pink and viable. An ostomy appliance was placed. The patient was successfully extubated and transferred to the recovery room in stable condition. The patient tolerated the procedure well with no complications. Findings: Thick/inflamed portion of sigmoid colon, + abscess at site of perforation CC: JO-ANN FRANCIS,CRISTELA
[2017-02-08 03:15] VITALS: BP 110/70
--- NOTE | 2017-02-08 03:38 | NUR ---
PT UP TO FLOOR AT 0315 VIA STRETCHER. REPORT RECEIVED FROM SANJANA ICU NURSE. A&OX3 ON 2L NC, VSS, NO C/O PAIN OR DISCOMFORT. BLOOD IN PLACE. NISHA TO RT LOWER QUAD, MIDLINE DRESSING INTACT. LUNGS CLEAR, HEART SOUNDS PRESENT. WILL CONTINUE TO MONITOR.
--- NOTE | 2017-02-08 06:32 | NUR ---
PT HAS BLOOD SINCE UP FROM PACU, NO ORDER FOR BLOOD IN PT'S CHART. PAGED TEDDY CAO TO PLACE BLOOD ORDER. AWAITING ORDER.
[2017-02-08 06:51] VITALS: BP 100/64
--- NOTE | 2017-02-08 07:07 | PN- General Surgery ---
See Addendum Subjective Subjective: The patient was seen this morning postoperatively day #1. She reports that her pain is much better than prior to surgery. She has no other complaints and denies any chest pain, difficulty breathing, or nausea. Objective Vital Signs and I&Os Vital Signs Date Time Temp Pulse Resp B/P B/P Pulse O2 O2 Flow FiO2 Mean Ox Delivery Rate 02/08 0651 79.9 64 16 100/64 99 Nasal 2.0L Cannula 02/08 0315 94 Nasal 2.0L Cannula 02/08 0315 97.8 80 18 110/70 94 Nasal 2.0L Cannula 02/07 2125 99.4 / 2125 99.4 105 18 110/70 97 Room Air 02/08 2008 101.4 02/07 2002 101.4 105 18 120/70 97 Room Air 02/07 1633 100.0 92 18 122/72 99 Room Air 02/07 1444 97.0 80 123/76 / 1216 98.0 88 20 115/71 / 1111 97.8 77 20 119/76 96 Room Air 02/07 1105 98.3 78 18 115/69 100 Nasal 2.0L Cannula 02/07 1101 98 Room Air Room Air 02/07 0803 96.8 70 16 109/62 96 Room Air Intake & Output 02/08 0800 07/ 0000 07/09 1600 / 0800 / 0000 /08 1600 Intake Total 529 300 5548 1000 Output Total 765 400 Balance -599 546 6760 1000 Intake, IV 407 183 5541 1000 Intake, Oral 0 0 Number 0 Bowel Movements Output, 15 Drainage Output, Urine 750 400 Patient 140 lb 140 lb Weight Weight Reported by Patient Measurement Method Physical Exam: Gen.: Alert and in no obvious distress Skin: Warm and dry Abdomen: Softly distended, appropriate incisional tenderness, bowel sounds sluggish. Surgical incision is clean, dry, and intact. Colostomy is pink and viable with no output in the bag. His NISHA holding suction with serosanguineous drainage in the bulb. Extremities: Bilateral lower extremities warm without calf tenderness or significant edema. Assessment/Plan Assessment/Plan Assessment: 31-year-old female status post Rangel's procedure for perforated diverticulitis postoperative day 1. The patient is progressing as expected and her pain is under adequate control. Plan: Keep nothing by mouth with IV hydration until increased bowel function Continue current pain regiment GI and DVT prophylaxis Out of bed and ambulate IV antibiotics DC Jose catheter Follow-up morning laboratory studies Colostomy care Core Measures/Miscellaneous Venous Thromboembolism VTE Risk Factors: No Risk Factors VTE Contraindications: No Contraindications VTE Diagnosis: No VTE Type: NONE VTE Confirmed by (Test): NONE Beta Zain Is Beta Zain a Home Med? No Antibiotics Is Patient on Antibiotics? Yes
[2017-02-08 09:17] LABS: ABSOLUTE BASOPHIL COUNT 0 /CUMM (0.0-0.2); ABSOLUTE EOSINOPHIL COUNT 0 /CUMM (0.0-0.7); ABSOLUTE LYMPH COUNT 0.4 /CUMM (1.2-3.4); BASOPHIL % 0 % (0.0-2.0); EOSINOPHIL % 0 % (0-5); MEAN CORPUSCULAR HGB CONC 34.4 G/DL (33.0-37.0); WHITE BLOOD CELL COUNT 16.7 /CUMM (4.8-10.8)
[2017-02-08 09:25] LABS: ABSOLUTE MONOCYTE COUNT 0.3 /CUMM (0.10-0.60); GRANULOCYTE % 95.7 % (42.2-75.2); MEAN CORPUSCULAR HGB 30.3 PG (27.0-31.0); MEAN CORPUSCULAR VOLUME 88.1 FL (81.0-99.0); PLATELET COUNT 200 /CUMM (130-400); RBC DISTRIBUTION WIDTH 13.1 % (11.5-14.5); RED BLOOD CELL CT 3.61 /CUMM (4.20-5.40)
[2017-02-08 09:29] LABS: HEMATOCRIT 31.8 % (37-47)
--- NOTE | 2017-02-08 10:19 | NUR ---
PATIENT WITH COMPLAINTS OF RIGHT SIDED CHEST PRESSURE WHEN SITTING, ALSO WITH C/O INABILITY TO TAKE DEEOP BREATH, FIRST ATTEMPT OOB AFTER SURGERY, TOLERATED GETTING UP WELL, IST GIVEN, SURGICIAL PA LEVI SHETTY AWARE. NEEDS WITHIN REACH, SAFETY MAINTAINED.
--- NOTE | 2017-02-08 12:20 | PN- Cardiology ---
Subjective Subjective: Patient reports that she is feeling well. No current chest pain. No shortness of breath. No palpitations. No diaphoresis. Objective Vital Signs and I&Os Vital Signs Date Time Temp Pulse Resp B/P B/P Pulse O2 O2 Flow FiO2 Mean Ox Delivery Rate 02/08 08 97.9 02/08 0800 99 Nasal 2.0L Cannula 02/08 0651 79.9 64 16 100/64 99 Nasal 2.0L Cannula 02/08 0315 94 Nasal 2.0L Cannula 02/08 0315 97.8 80 18 110/70 94 Nasal 2.0L Cannula 02/07 2125 99.4 02/07 2125 99.4 105 18 110/70 97 Room Air 02/08 2008 101.4 02/07 2002 101.4 105 18 120/70 97 Room Air 02/07 1633 100.0 92 18 122/72 99 Room Air 02/07 1444 97.0 80 123/76 Intake & Output 02/08 1600 02/08 0800 02/08 0000 02/07 1600 02/08 0800 02/07 0000 Intake Total 958 840 3552 1000 Output Total 765 400 Balance -370 079 3627 1000 Intake, IV 827 636 4695 1000 Intake, Oral 0 0 Number 0 Bowel Movements Output, 15 Drainage Output, Urine 750 400 Patient 140 lb 140 lb Weight Weight Reported by Patient Measurement Method Physical Exam: Gen: NAD HEENT: normal Lungs: clear to auscultation, normal resp. effort Heart: RRR, S1, S2, no murmurs Abdomen: Soft, mild incisional tenderness, no masses Extremities: No clubbing, cyanosis, or edema. Neuro: Alert and oriented x 3, cranial nerves intact Current Medications: Current Medications Sig/Nichol Start time Last Medication Dose Route Stop Time Status Admin Acetaminophen 1,000 MG Q6P PRN 02/08 0345 AC N/A 1 UNIT IV Acetaminophen 1,000 MG Q6P PRN 02/07 1300 DC 02/07 N/A 1 UNIT IV 2008 Ceftriaxone Sodium 2,000 MG Q24H 02/08 1300 DC IV Ceftriaxone Sodium 2,000 MG Q24H 02/08 1300 AC IV Ceftriaxone Sodium 2,000 MG Q24H 02/07 1300 DC 02/07 IV 1259 Ceftriaxone Sodium 0 .STK-MED ONE 02/07 1259 DC .ROUTE Ceftriaxone Sodium 1,000 MG DAILY 02/07 1200 CAN IV Dextrose/Sodium 1,000 ML .Q8H 02/08 1046 AC 02/08 Chloride IV 1107 Dextrose/Sodium 1,000 ML .Q8H 02/07 1245 DC 02/07 Chloride IV 02/08 1045 2126 Docusate Sodium 100 MG BID 02/08 1117 AC 07 PO 1152 Famotidine 20 MG .STK-MED ONE 02/07 215 DC IV 02/07 215 Fentanyl Citrate 250 MCG .STK-MED ONE 02/07 215 DC IM 02/07 215 Heparin Sodium 5,000 UNIT Q8 02/08 1400 AC (Porcine) SC Heparin Sodium 0 .STK-MED ONE 02/07 1427 DC (Porcine) .ROUTE Heparin Sodium 5,000 UNIT Q8 02/07 1400 DC 02/07 (Porcine) SC 1427 Hydromorphone HCl 1 MG Q2-3 HRS NEEDED.. 02/08 0345 AC 02/08 IV 1118 Hydromorphone HCl 1 MG Q2-3 HRS NEEDED.. 02/07 2030 DC 02/07 IV 2023 Ketorolac 30 MG Q6P PRN 02/07 1300 DC 02/07 Tromethamine IV 1643 Lorazepam 0.5 MG Q4P PRN 02/08 0345 AC IV Lorazepam 0.5 MG Q4P PRN 02/07 1300 DC IV Metronidazole 500 MG Q8H 02/08 1130 AC 02/08 N/A 1 UNIT IV 1104 Metronidazole 500 MG Q8H 02/07 1930 DC 02/08 N/A 1 UNIT IV 02/08 1129 0400 Metronidazole 500 MG Q8H 02/07 1130 DC 02/07 N/A 1 UNIT IV 1128 Midazolam HCl 2 MG .STK-MED ONE 02/07 215 DC IM 02/07 2155 Morphine Sulfate 0 .STK-MED ONE 02/07 1421 DC .ROUTE Morphine Sulfate 4 MG Q4-6 PRN PRN 02/07 1300 DC 02/07 IV 1814 Ondansetron HCl 4 MG Q6P PRN 02/08 0700 AC IV Ondansetron HCl 4 MG Q8P PRN 02/08 0345 DC IV Ondansetron HCl 4 MG Q8P PRN 02/07 1245 DC IV Scopolamine HBr 1 PAT .STK-MED ONE 02/07 2245 [facility] 02/07 2246 Results Last 48 Hrs of Labs/Mics: Laboratory Tests 02/08/17 0852: Anion Gap 9, Estimated GFR > 60, BUN/Creatinine Ratio 8.0, CBC w Diff MAN DIFF ORDERED, RBC 3.61 L, MCV 88.1, MCH 30.3, RDW 13.1, MPV 9.0, Gran % 95.7 H, Lymphocytes % 2.4 L, Monocytes % 1.9, Eosinophils % 0, Basophils % 0 L, Absolute Granulocytes 16.0 H, Segmented Neutrophils 85 H, Band Neutrophils 11 H, Absolute Lymphocytes 0.4 L, Lymphocytes 2 L, Monocytes 2, Absolute Monocytes 0.3, Absolute Eosinophils 0, Absolute Basophils 0, Platelet Estimate ADEQUATE, Normocytic RBCs VERIFIED, Normochromic RBCs VERIFIED, PUBS MCHC 34.4 02/08/17 0610: Urinalysis LIGHT H, Urine Color YEL, Urine Clarity CLEAR, Urine pH 7.0, Ur Specific Hamel <= 1.005, Urine Protein NEG, Urine Ketones NEG, Urine Nitrite NEG, Urine Bilirubin NEG, Urine Urobilinogen 0.2, Ur Leukocyte Esterase NEG, Ur Microscopic SEDIMENT EXAMINED, Urine RBC RARE, Ur Epithelial Cells RARE, Urine Mucus RARE, Urine Hemoglobin TRACE-INTACT, Urine Glucose 500 H 02/08/17 0600: Sodium Cancelled, Potassium Cancelled, Chloride Cancelled, Carbon Dioxide Cancelled, Anion Gap Cancelled, BUN Cancelled, Creatinine Cancelled, BUN/ Creatinine Ratio Cancelled, CBC w Diff Cancelled, WBC Cancelled, RBC Cancelled, Hgb Cancelled, Hct Cancelled, MCV Cancelled, MCH Cancelled, RDW Cancelled, Plt Count Cancelled, MPV Cancelled, PUBS MCHC Cancelled 02/07/17 1740: Troponin I < 0.01 02/07/17 0650: Anion Gap 16, Estimated GFR > 60, BUN/Creatinine Ratio 6.7 L, Glucose 121 H, Calcium 9.5, Total Bilirubin 0.4, AST 22, ALT 32, Alkaline Phosphatase 67, Troponin I < 0.01, Total Protein 8.0, Albumin 5.1 H, Globulin 2.9, Albumin/ Globulin Ratio 1.8, Amylase 55, Lipase 35, Total Beta HCG NEGATIVE, CBC w Diff NO MAN DIFF REQ, RBC 4.48, MCV 90.3, MCH 30.2, RDW 12.7, MPV 8.8, Gran % 88.3 H , Lymphocytes % 8.4 L, Monocytes % 3.0, Eosinophils % 0.2, Basophils % 0.1, Absolute Granulocytes 14.1 H, Absolute Lymphocytes 1.3, Absolute Monocytes 0.5, Absolute Eosinophils 0, Absolute Basophils 0, PUBS MCHC 33.5 Assessment/Plan Assessment/Plan 1. Atypical chest discomfort, resolved 2. Diverticular perforation as per surgery 3. History of migraines. Plan: * No further inpatient workup unless the pain reoccurs * Follow up with Dr. Gutierrez in 2 weeks after discharge Continue telemetry? Not applicable
[2017-02-08 14:32] VITALS: BP 118/68
[2017-02-08 22:34] VITALS: BP 102/82
--- NOTE | 2017-02-09 00:01 | NUR ---
PATIENT ALERT AND ORIENTED X 3. FAMILY AT BEDSIDE. PATIENT C/O NOT WANTING TO SLEEP. PA NOTIFIED AND ATIVAN WAS ORDERED. PATIENT EDUCATED ON COLOSTOMY CARE. CONTINUE ON IV FLAGYL. PAIN MEDICATION GIVEN ORDERED. CALL LIGHT WITHIN REACH. WILL CONTINUE TO MONITOR.
--- NOTE | 2017-02-09 00:04 | NUR ---
PASTORAL CARE ALSO CALLED IN TO SEE PATIENT SHE SEEMED VERY EMOTIONAL ABOUT HER SISTER.
[2017-02-09 06:46] VITALS: BP 98/70
--- NOTE | 2017-02-09 07:25 | PN- General Surgery ---
Subjective Subjective: No acute events overnight. Patient admits to mild incisional abdominal pain and gas pain. Denies any nausea or emesis. Has been able to tolerate a clear liquid diet. Denies any fevers, chills, chest pain, or SOB. She is passing flatus since yesterday and has small amount of liquid stool this am. Voiding freely. Objective Vital Signs and I&Os Vital Signs Date Time Temp Pulse Resp B/P B/P Pulse O2 O2 Flow FiO2 Mean Ox Delivery Rate 02/09 0646 98.6 88 20 98/70 95 Room Air 02/08 2234 98.2 74 20 102/82 98 Room Air 02/08 1432 98.3 88 20 118/68 98 02/08 0800 97.9 02/08 0800 99 Nasal 2.0L Cannula Intake & Output 02/09 0802/09 0000 02/08 1600 02/08 0800 02/08 0000 02/07 1600 Intake Total 1200 1330 1250 512 395 2940 Output Total 15 655 1245 765 400 Balance 1185 675 5 -652 401 0385 Intake, IV 6750 037 7198 592 250 0430 Intake, Oral 200 480 250 0 0 Number 0 Bowel Movements Output, 15 30 45 15 Drainage Output, Stool 25 Output, Urine 600 1200 750 400 Patient 140 lb Weight Physical Exam: Gen.: Alert and oriented, lying in bed in NAD Skin: Warm and dry Cardiac: RRR Pulmonary: CTAB Abdomen: Surgical incision is clean, dry, and intact. Colostomy is pink and viable with small amount of liquid stool noted in bag, + flatus. + BS, mild soft distention, appropriate incisional tenderness. NISHA drain to bulb suction, + serosanguinous drainage. Extremities: Bilateral lower extremities warm without calf tenderness or significant edema. Current Medications: Current Medications Sig/Nichol Start time Last Medication Dose Route Stop Time Status Admin Acetaminophen 1,000 MG Q6P PRN 02/08 0345 AC N/A 1 UNIT IV Ceftriaxone Sodium 2,000 MG Q24H 02/08 1300 DC IV Ceftriaxone Sodium 2,000 MG Q24H 02/08 1300 AC 02/08 IV 1254 Dextrose/Sodium 1,000 ML .Q8H 02/08 1046 AC 02/08 Chloride IV 1107 Docusate Sodium 100 MG BID 02/08 1117 AC 02/08 PO 2107 Heparin Sodium 5,000 UNIT Q8 02/08 1400 AC 02/09 (Porcine) SC 0551 Hydromorphone HCl 1 MG Q2-3 HRS NEEDED.. 02/08 0345 AC 02/08 IV 2244 Ketorolac 30 MG Q6 02/08 1800 AC 02/09 Tromethamine IV 02/11 1201 0546 Lorazepam 0.5 MG Q4P PRN 02/08 0345 AC 02/08 IV 2245 Metronidazole 500 MG Q8H 02/08 1130 AC 02/09 N/A 1 UNIT IV 0410 Ondansetron HCl 4 MG Q6P PRN 02/08 0700 AC IV Patient Medication 1 ED .STK-MED ONE 02/08 1408 [place] [facility] 02/08 1409 Results Last 48 Hours of Labs: Laboratory Tests 02/08 02/08 0852 0610 Chemistry Sodium (137 - 145 mmol/L) 139 Potassium (3.5 - 5.1 mmol/L) 4.2 Chloride (98 - 107 mmol/L) 108 H Carbon Dioxide (22 - 30 mmol/L) 21 L Anion Gap (5 - 16) 9 BUN (7 - 17 mg/dL) 4 L Creatinine (0.5 - 1.0 mg/dL) 0.5 Estimated GFR (>60 ml/min) > 60 BUN/Creatinine Ratio (7 - 25 %) 8.0 Hematology CBC w Diff MAN DIFF ORDERED WBC (4.8 - 10.8 /CUMM) 16.7 H RBC (4.20 - 5.40 /CUMM) 3.61 L Hgb (12.0 - 16.0 G/DL) 10.9 L Hct (37 - 47 %) 31.8 L MCV (81.0 - 99.0 FL) 88.1 MCH (27.0 - 31.0 PG) 30.3 RDW (11.5 - 14.5 %) 13.1 Plt Count (130 - 400 /CUMM) 200 MPV (7.4 - 10.4 FL) 9.0 Gran % (42.2 - 75.2 %) 95.7 H Lymphocytes % (20.5 - 51.1 %) 2.4 L Monocytes % (1.7 - 9.3 %) 1.9 Eosinophils % (0 - 5 %) 0 Basophils % (0.0 - 2.0 %) 0 L Absolute Granulocytes (1.4 - 6.5 /CUMM) 16.0 H Segmented Neutrophils (42.2 - 75.2 %) 85 H Band Neutrophils (0.0 - 5.0 %) 11 H Absolute Lymphocytes (1.2 - 3.4 /CUMM) 0.4 L Lymphocytes (20.5 - 51.1 %) 2 L Monocytes (1.7 - 9.3 %) 2 Absolute Monocytes (0.10 - 0.60 /CUMM) 0.3 Absolute Eosinophils (0.0 - 0.7 /CUMM) 0 Absolute Basophils (0.0 - 0.2 /CUMM) 0 Platelet Estimate (ADEQUATE) ADEQUATE Normocytic RBCs VERIFIED Normochromic RBCs VERIFIED PUBS MCHC (33.0 - 37.0 G/DL) 34.4 Urines Urinalysis LIGHT H Urine Color (YEL,AMB,STR) YEL Urine Clarity (CLEAR) CLEAR Urine pH (5.0 - 8.0) 7.0 Ur Specific Roy (1.001 - 1.035) <= 1.005 Urine Protein (NEG,<30 MG/DL) NEG Urine Ketones (NEG) NEG Urine Nitrite (NEG) NEG Urine Bilirubin (NEG) NEG Urine Urobilinogen (0.1 - 1.0 EU/dl) 0.2 Ur Leukocyte Esterase (NEG) NEG Ur Microscopic SEDIMENT EXAMINED Urine RBC (0 - 5 /HPF) RARE Ur Epithelial Cells (NONE,FEW) RARE Urine Mucus (FEW,NONE) RARE Urine Hemoglobin (NEG) TRACE-INTACT Urine Glucose (N MG/DL) 500 H 07/10 07/09 0600 1740 Chemistry Sodium Cancelled Potassium Cancelled Chloride Cancelled Carbon Dioxide Cancelled Anion Gap Cancelled BUN Cancelled Creatinine Cancelled BUN/Creatinine Ratio Cancelled Troponin I (< 0.11 ng/ml) < 0.01 Hematology CBC w Diff Cancelled WBC Cancelled RBC Cancelled Hgb Cancelled Hct Cancelled MCV Cancelled MCH Cancelled RDW Cancelled Plt Count Cancelled MPV Cancelled PUBS MCHC Cancelled Assessment/Plan Assessment/Plan Assessment: 31-year-old female POD # 2 s/p Rangel's procedure for perforated diverticulitis now with + ostomy function, pain well controlled. Plan: Advance to full liquid diet Continue current pain regimen GI and DVT prophylaxis Out of bed and ambulate IV antibiotics Follow-up morning laboratory studies Colostomy care Core Measures/Miscellaneous Venous Thromboembolism VTE Risk Factors: No Risk Factors VTE Contraindications: No Contraindications VTE Diagnosis: No VTE Type: NONE VTE Confirmed by (Test): NONE Beta Zain Is Beta Zain a Home Med? No Antibiotics Is Patient on Antibiotics? Yes
[2017-02-09 08:38] LABS: ABSOLUTE BASOPHIL COUNT 0 /CUMM (0.0-0.2); ABSOLUTE EOSINOPHIL COUNT 0 /CUMM (0.0-0.7); ABSOLUTE GRANULOCYTE CT 8.7 /CUMM (1.4-6.5); ABSOLUTE LYMPH COUNT 1.3 /CUMM (1.2-3.4); ABSOLUTE MONOCYTE COUNT 0.4 /CUMM (0.10-0.60); BASOPHIL % 0.3 % (0.0-2.0); EOSINOPHIL % 0.3 % (0-5); HEMATOCRIT 27.7 % (37-47); MEAN CORPUSCULAR HGB 30.4 PG (27.0-31.0); MEAN CORPUSCULAR HGB CONC 33.6 G/DL (33.0-37.0); MEAN CORPUSCULAR VOLUME 90.5 FL (81.0-99.0); MEAN PLATELET VOLUME 8.6 FL (7.4-10.4); PLATELET COUNT 154 /CUMM (130-400); RBC DISTRIBUTION WIDTH 13.1 % (11.5-14.5); RED BLOOD CELL CT 3.06 /CUMM (4.20-5.40); WHITE BLOOD CELL COUNT 10.4 /CUMM (4.8-10.8)
[2017-02-09 09:47] LABS: GRANULOCYTE % 83.1 % (42.2-75.2)
--- NOTE | 2017-02-09 12:20 | NUR ---
SURGICAL PA AT BEDSIDE TO CHANGE PTS MIDLINE DRESSING AND TAKE OUT NISHA DRAIN.
[2017-02-09 15:27] VITALS: BP 112/68
--- NOTE | 2017-02-09 16:52 | NUR ---
ostomy education: pt seen this am to initiate ostomy education - pt eating lunch at time of consult - stated she is very comfortable in managing her ostomy, and that she has been taking care of it herself emptying, etc will cont with dc instructions in the am with pt, so she is ready to begin dc planning
--- NOTE | 2017-02-09 18:13 | NUR ---
PT C/O PAIN WHEN INSPIRATION/EXPIRATION. SURGICAL PA MADE AWARE. STAT EKG AND BLOODWORK ORDERED. SURGICAL PA AT BEDSIDE TO ASSESS.
[2017-02-09 18:40] LABS: ABSOLUTE BASOPHIL COUNT 0 /CUMM (0.0-0.2); ABSOLUTE EOSINOPHIL COUNT 0.1 /CUMM (0.0-0.7); ABSOLUTE GRANULOCYTE CT 8.2 /CUMM (1.4-6.5); ABSOLUTE LYMPH COUNT 1.4 /CUMM (1.2-3.4); ABSOLUTE MONOCYTE COUNT 0.4 /CUMM (0.10-0.60); BASOPHIL % 0.2 % (0.0-2.0); EOSINOPHIL % 0.9 % (0-5); GRANULOCYTE % 80.4 % (42.2-75.2); HEMATOCRIT 28.8 % (37-47); MEAN CORPUSCULAR HGB 29.9 PG (27.0-31.0); MEAN CORPUSCULAR VOLUME 90.8 FL (81.0-99.0); MEAN PLATELET VOLUME 8.7 FL (7.4-10.4); PLATELET COUNT 186 /CUMM (130-400); RBC DISTRIBUTION WIDTH 13.3 % (11.5-14.5); RED BLOOD CELL CT 3.17 /CUMM (4.20-5.40); WHITE BLOOD CELL COUNT 10.2 /CUMM (4.8-10.8)
--- NOTE | 2017-02-09 18:42 | RADIOLOGY REPORT ---
EXAMINATION: XR PORTABLE CHEST CLINICAL INFORMATION: Chest pain. Status post Rangel's procedure. COMPARISON: None TECHNIQUE: Portable sitting AP view of the chest was obtained. FINDINGS: The cardiomediastinal silhouette is unremarkable. The lungs and pleural spaces appear clear without evidence of congestion, consolidation, or significant appearing effusion or atelectasis. There is no evidence of pneumothorax or pulmonary edema. Included osseous structures appear largely unremarkable. IMPRESSION: Unremarkable examination.
--- NOTE | 2017-02-09 19:00 | NUR ---
PT REPORTS IMPROVEMENT IN PAIN TO R RIB CAGE WHEN BREATHING. STAT CHEST XRAY PERFORMED, EKG, AND LAB WORK DONE. PER SURGICAL PA, WORKUP WAS NORMAL. PT UPDATED ON POC. REMAINS WITHIN REACH. SAFETY MAINTAINED.
[2017-02-09 21:52] VITALS: BP 108/70
--- NOTE | 2017-02-10 01:10 | Event Note ---
Event Note Event Note: Was called to patient's bedside at approximately 1830 on 02/09/2017 for c/o right sided flank and upper back pain upon inspiration. Patient denied chest tightness or shortness of breath. She states that she was unable to lay flat due to the discomfort. She has a history of left sided atypical chest discomfort on this admission for which she was evaluated by cardiology. It was determined that the source of her discomfort was not cardiac related and likely due to diaphragmatic irritation. An ekg was obtained at the time of this new discomfort and showed sinus rhythm. A chest xray did not demonstrate a pneumothorax or any pathology from a cardiothorasic standpoint. Troponins were negative. Her hemodynamic status remained stable throughout this episode. The patient received IV dilaudid followed by iv toradol with good response. No further complaints of discomfort following the administration of the toradol. Dr. Martinez was made aware of the situation.
[2017-02-10 06:00] VITALS: BP 116/78
--- NOTE | 2017-02-10 07:16 | PN- General Surgery ---
See Addendum Subjective Subjective: The patient was seen this morning postoperatively day #3. She reports her pain is under adequate control and that her colostomy has increased output of stool and gas in the bag. She is tolerating a full liquid diet however she reports intermittent nausea and some burping. She has no other complaints at the current time and denied any chest pain, palpitations, or difficulty breathing. Objective Vital Signs and I&Os Vital Signs Date Time Temp Pulse Resp B/P B/P Pulse O2 O2 Flow FiO2 Mean Ox Delivery Rate 02/10 0600 98.2 63 18 116/78 98 Room Air 02/09 2152 99.0 82 18 108/70 97 02/09 1527 98.3 81 20 112/68 100 Intake & Output 02/10 0802/10 0000 02/09 1600 02/09 0802/09 0000 02/08 1600 Intake Total 9498 424 9592 1330 1250 Output Total 15 655 1245 Balance 8892 000 7186 675 5 Intake, IV 227 376 3356 850 1000 Intake, Oral 700 600 200 480 250 Output, 15 30 45 Drainage Output, Stool 25 Output, Urine 600 1200 Patient 140 lb Weight Physical Exam: Gen.: Alert and in no obvious distress Skin: Warm and dry Abdomen: Soft, mildly distended, appropriate incisional tenderness, bowel sounds positive. Midline incision is clean, dry, and intact. Colostomy is pink and viable with a moderate amount of loose stool in the bag. Extremities: Bilateral lower extremities are warm without calf tenderness or significant edema. Assessment/Plan Assessment/Plan Assessment: 31-year-old female status post Rangel's procedure for perforated diverticulitis postoperative day #3. The patient is progressing as expected and her bowel function is slowly improving. Plan: Continue on full liquid diet until less nausea IV antibiotics PRN pain medication, antiemetics, antipyretics Out of bed and ambulate GI and DVT prophylaxis Daily dry dressing change and ostomy care Follow-up morning laboratory studies Incentive spirometry Strict I's and O's Core Measures/Miscellaneous Venous Thromboembolism VTE Risk Factors: No Risk Factors VTE Contraindications: No Contraindications VTE Diagnosis: No VTE Type: NONE VTE Confirmed by (Test): NONE Beta Zain Is Beta Zain a Home Med? No Antibiotics Is Patient on Antibiotics? Yes
[2017-02-10 10:34] LABS: ABSOLUTE BASOPHIL COUNT 0 /CUMM (0.0-0.2); ABSOLUTE EOSINOPHIL COUNT 0.1 /CUMM (0.0-0.7); ABSOLUTE GRANULOCYTE CT 5.2 /CUMM (1.4-6.5); ABSOLUTE LYMPH COUNT 0.9 /CUMM (1.2-3.4); ABSOLUTE MONOCYTE COUNT 0.4 /CUMM (0.10-0.60); BASOPHIL % 0.3 % (0.0-2.0); EOSINOPHIL % 1.7 % (0-5); GRANULOCYTE % 78.9 % (42.2-75.2); HEMATOCRIT 26.3 % (37-47); MEAN CORPUSCULAR HGB 29.8 PG (27.0-31.0); MEAN CORPUSCULAR VOLUME 90.3 FL (81.0-99.0); PLATELET COUNT 154 /CUMM (130-400); RBC DISTRIBUTION WIDTH 12.9 % (11.5-14.5); RED BLOOD CELL CT 2.91 /CUMM (4.20-5.40); WHITE BLOOD CELL COUNT 6.6 /CUMM (4.8-10.8)
--- NOTE | 2017-02-10 11:58 | NUR ---
INTO ROOM WITH SURGICAL PA WHEN CHANGING DRESSING, OSTOMY APPLIANCE TRIMMED TO MAKE ROOM FOR DRESSING BY PA, SURGICAL SITE CLEAN AND DRY, SMALL OPEN AREA TO UPPER PORTION OF SURGICAL SITE, PACKED WITH FLUFF WET WITH SALINE BY SURGICAL PA, ABDOMEN APPEARS TO BE SOFT AND DISTENDED, PATIENT WITH NO COMPLAINTS OF PAIN, NEEDS IN REACH, SAFETY MAINTAINED.
--- NOTE | 2017-02-10 13:03 | PN- Cardiology ---
Subjective Subjective: Clinically stable from a cardiac perspective. No further chest discomfort since surgery. Objective Vital Signs and I&Os Vital Signs Date Time Temp Pulse Resp B/P B/P Pulse O2 O2 Flow FiO2 Mean Ox Delivery Rate 02/10 06 98.2 63 18 116/78 98 Room Air 02/09 2152 99.0 82 18 108/70 97 02/09 1527 98.3 81 20 112/68 100 Intake & Output 02/10 1600 02/10 0800 02/10 0000 02/09 1600 02/09 0800 02/09 0000 Intake Total 4082 110 9733 1330 Output Total 15 655 Balance 1857 850 6155 675 Intake, IV 958 830 6305 850 Intake, Oral 700 600 200 480 Output, 15 30 Drainage Output, Stool 25 Output, Urine 600 Patient 140 lb Weight Current Medications: Current Medications Sig/Nichol Start time Last Medication Dose Route Stop Time Status Admin Acetaminophen 1,000 MG Q6P PRN 02/08 0345 AC N/A 1 UNIT IV Ceftriaxone Sodium 2,000 MG Q24H 02/08 1300 AC 02/10 IV 1150 Docusate Sodium 100 MG BID 02/08 1117 AC 02/10 PO 1150 Heparin Sodium 5,000 UNIT Q8 02/08 1400 AC 02/10 (Porcine) SC 0558 Hydromorphone HCl 1 MG Q2-3 HRS NEEDED.. 02/08 0345 DC 02/09 IV 1821 Ketorolac 30 MG Q6 02/08 1800 AC 02/10 Tromethamine IV 02/11 1201 1150 Lorazepam 0.5 MG Q4P PRN 02/08 0345 AC 02/10 IV 0509 Metoclopramide HCl 5 MG Q6 02/10 1200 AC 02/10 IV 1150 Metronidazole 500 MG Q8H 02/08 1130 AC 02/10 N/A 1 UNIT IV 1150 Ondansetron HCl 4 MG Q6P PRN 02/08 0700 AC 02/10 IV 0458 Oxycodone HCl 5 MG Q4-6 PRN PRN 02/10 1015 AC PO Oxycodone HCl 10 MG Q4-6 PRN PRN 02/10 1015 AC PO Potassium Chloride 20 MEQ Q13H 02/09 0945 AC 02/10 Dextrose/Sodium 1,000 ML IV 0747 Chloride Results Last 48 Hrs of Labs/Mics: Laboratory Tests 02/10/17 0724: Anion Gap 8, Estimated GFR > 60, BUN/Creatinine Ratio 8.0, CBC w Diff NO MAN DIFF REQ, RBC 2.91 L, MCV 90.3, MCH 29.8, RDW 12.9, MPV 10.0, Gran % 78.9 H, Lymphocytes % 13.7 L, Monocytes % 5.4, Eosinophils % 1.7, Basophils % 0.3, Absolute Granulocytes 5.2, Absolute Lymphocytes 0.9 L, Absolute Monocytes 0.4, Absolute Eosinophils 0.1, Absolute Basophils 0, PUBS MCHC 33.0 02/09/17 1830: Anion Gap 11, Estimated GFR > 60, BUN/Creatinine Ratio 8.3, Troponin I < 0.01, CBC w Diff NO MAN DIFF REQ, RBC 3.17 L, MCV 90.8, MCH 29.9, RDW 13.3, MPV 8.7, Gran % 80.4 H, Lymphocytes % 14.1 L, Monocytes % 4.4, Eosinophils % 0.9, Basophils % 0.2, Absolute Granulocytes 8.2 H, Absolute Lymphocytes 1.4, Absolute Monocytes 0.4, Absolute Eosinophils 0.1, Absolute Basophils 0, PUBS MCHC 33.0 02/09/17 0821: Anion Gap 8, Estimated GFR > 60, BUN/Creatinine Ratio 8.3, Phosphorus 2.1 L, Magnesium 1.9, CBC w Diff NO MAN DIFF REQ, RBC 3.06 L, MCV 90.5, MCH 30.4, RDW 13.1, MPV 8.6, Gran % 83.1 H, Lymphocytes % 12.6 L, Monocytes % 3.7, Eosinophils % 0.3, Basophils % 0.3, Absolute Granulocytes 8.7 H, Absolute Lymphocytes 1.3, Absolute Monocytes 0.4, Absolute Eosinophils 0, Absolute Basophils 0, PUBS MCHC 33.6 Assessment/Plan Assessment/Plan Assessment: 1. Atypical chest discomfort - stable and resolved 2. Diverticular perforation-continue as per the surgical service 3. History of migraines. Recommendations: -The patient remains totally stable at the present time with no recurrence of any symptoms. For now I do not see any reason for any further cardiac evaluation. I discussed everything with the patient. The patient will call me in the future if there are any issues that should arise, otherwise, I do not see any reason for cardiology follow-up at the present time. Continue telemetry? No
[2017-02-10 13:55] VITALS: BP 122/80
[2017-02-10 22:24] VITALS: BP 127/78
[2017-02-11 06:00] VITALS: BP 134/80
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
--- NOTE | 2017-02-11 08:24 | Patient Discharge Instructions ---
Discharge Instructions General Discharge Information You were seen/treated for: Perforated diverticulitis, diffuse peritonitis You had these procedures: Surgery Date: 02/08/17 Name of Procedure: Exploratory laparotomy, sigmoid resection, end colostomy (Hartmanns procedure) Watch for these problems: fever>101.3, increased pain, redness/swelling/drainage Call Surgeon to remove: Kathy No bath, but you may shower: Yes Other wound care: dry guaze dressing change daily, midline incision. keep incision clean & dry. no bathing, but showering is ok. Special Instructions: colostomy care Diet Continue normal diet: No Recommended Diet: Low Residue Activity Full Activity/No Limits: No Activity Self Limited: Yes Pounds, do NOT lift more than: 10 Other activity limits: no heavy lifting. no strenuous activity. Acute Coronary Syndrome Inclusion Criteria At DC or during hospital stay patient has or had the following: ACS DIAGNOSIS No Discharge Core Measures Meds if any: Prescribed or Continued at Discharge Meds if any: NOT Prescribed or Continued at Discharge Congestive Heart Failure Inclusion Criteria At DC or during hospital stay patient has or had the following: CHF DIAGNOSIS No Discharge Core Measures Meds if any: Prescribed or Continued at Discharge Meds if any: NOT Prescribed or Continued at Discharge Cerebrovascular accident Inclusion Criteria At DC or during hospital stay patient has or had the following: CVA/TIA Diagnosis No Discharge Core Measures Meds if any: Prescribed or Continued at Discharge Meds if any: NOT Prescribed or Continued at Discharge Venous thromboembolism Inclusion Criteria VTE Diagnosis No VTE Type NONE VTE Confirmed by (Test) NONE Discharge Core Measures - Per Current guidelines, there needs to be overlap - treatment for the first 5 days of Warfarin therapy. - If discharged on Warfarin prior to 5 days of - overlap therapy, the patient will need to be - assessed for post discharge needs including - *Post discharge parental anticoagulation - *Warfarin and/or parental anticoagulation education - *Follow up date to check INR post discharge At least 5 days overlap therapy as Inpatient No Meds if any: Prescribed or Continued at Discharge Note: Overlap Therapy is Warfarin and Anticoagulant Meds if any: NOT Prescribed or Continued at Discharge
[2017-02-11] MEDS ORDERED: DOCUSATE SODIU100 M3 PO (08:30)
[2017-02-11] MEDS ORDERED: PERCOCET 5-3251 EACH PO (08:30)
[2017-02-11] MEDS ORDERED: ZOFRAN ODT4 M1 SL (08:30)
[2017-02-11] MEDS ORDERED: FLAGYL500 MG PO (08:30)
[2017-02-11] MEDS ORDERED: CIPRO500 M1 PO (08:30)
[2017-02-11] MEDS ORDERED: ATIVAN0.5 M1 PO (08:32)
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
[2017-02-11 09:02] LABS: ABSOLUTE BASOPHIL COUNT 0 /CUMM (0.0-0.2); ABSOLUTE EOSINOPHIL COUNT 0.1 /CUMM (0.0-0.7); ABSOLUTE GRANULOCYTE CT 3.8 /CUMM (1.4-6.5); ABSOLUTE MONOCYTE COUNT 0.4 /CUMM (0.10-0.60); BASOPHIL % 0.6 % (0.0-2.0); EOSINOPHIL % 2.3 % (0-5); GRANULOCYTE % 70.7 % (42.2-75.2); HEMATOCRIT 26.9 % (37-47); MEAN CORPUSCULAR HGB 30.6 PG (27.0-31.0); MEAN CORPUSCULAR HGB CONC 34.2 G/DL (33.0-37.0); MEAN CORPUSCULAR VOLUME 89.6 FL (81.0-99.0); MEAN PLATELET VOLUME 9.4 FL (7.4-10.4); PLATELET COUNT 183 /CUMM (130-400); RBC DISTRIBUTION WIDTH 12.7 % (11.5-14.5); WHITE BLOOD CELL COUNT 5.3 /CUMM (4.8-10.8)
[2017-02-11 14:16] VITALS: BP 120/70
--- NOTE | 2017-02-11 14:50 | NUR ---
PATIENT TOLERATING LOW FIBER DIET WELL, WILL BE DISCHARGED THIS EVENING PER PA, PATIENT AGREEABLE TO PLAN
--- NOTE | 2017-02-11 16:01 | NUR ---
CALLED INTO ROOM BY PT STATING PAIN TO ABD 4/10, AND NAUSEA. MEDICATED ACCORDING TO EMAR WITH IV ZOFRAN AND PRN ROXICODONE. CALL TO SURGICAL PA TO MAKE AWARE
--- NOTE | 2017-02-11 16:28 | NUR ---
PT STATES THAT THE PAIN AND NAUSEA HAS SUBSIDED "ONCE I SAT UP AND THE STOOL CAME OUT INTO THE BAG I FELT BETTER", +BS, SMALL AMT BROWN LIQUID IN BAG. CALL TO SURGICAL PA. PT'S BOYFRIEND AT BEDSIDE FOR D/C.
== END 2017-02-11 17:09 | disposition home health service (06) | DRG 221 ==
LOC: ERH 06:37 → 2NA 12:35 → ERHI 12:35 → ENRESERV 15:14 → ENTRNSPT 15:34 → 2NA 15:42 → CMPTRNSPT 17:03 → 2NA 02-08 11:25 → ENPENDDIS 02-11 15:48 → 2NA 02-11 17:09
PROVIDERS: Emergency Medicine; Nurse Practitioner; Physician Assistant; Physician Assistant Surgical; ADMIT Surgery
PROC: 0DBN0ZZ Excision of Sigmoid Colon, Open Approach (ICD-10-PCS; principal; 2017-02-07)
PROC: 0D1N0Z4 Bypass Sigmoid Colon to Cutaneous, Open Approach (ICD-10-PCS; 2017-02-07)
DX: K57.20 Diverticulitis of large intestine with perforation and abscess without bleeding (principal); G43.909 Migraine, unspecified, not intractable, without status migrainosus; D64.9 Anemia, unspecified; Z85.41 Personal history of malignant neoplasm of cervix uteri
CPT/HCPCS: 2NAP; 36415; 74176; 74177; 81001; 82436; 87086; 93005; 93010; 96361; 96365; 96375; 96376; 99291; C9399; J0131; J0690; J0696; J1644; J1885; J2405; J2765; J7042; S5012

== ENCOUNTER 2017-10-27 04:15 | Inpatient (IN) | payer OTHER ==
[~2017-10-27] VITALS: Ht 165.1 cm; Wt 73.0 kg
[~2017-10-27 04:15] MED LIST changes: +ATIVAN0.5 M1 PO; +CIPRO500 M1 PO; +DOCUSATE SODIU100 M3 PO; +FLAGYL500 MG PO; +PERCOCET 5-3251 EACH PO; +ZOFRAN ODT4 M1 SL
--- NOTE | 2017-10-27 12:54 | Surg Short-stay <48hrs Dis Sum ---
Visit Information Visit Dates Admission Date: 10/27/17 Discharge Date: 10/29/17 Surgical Short Stay DC Summary Admission Diagnosis: s/p colostomy for history of perforated diverticulitis Final Diagnosis: same as above, s/p laparoscopic colostomy reversal (10/27/17) Procedure(s): Laparoscopic colostomy reversal (10/27/17) Summary/Significant Findings: Electively scheduled laparoscopic colostomy reversal by on 10/27/17 for history of mitchell's procedure for perforated diverticulitis. Diet advanced with return of bowel function. Pain control transitioned from iv to oral medications. Colostomy site dressing changes starting post-op day#2. Condition at Discharge: stable Discharge Disposition: home health services Discharge instructions provided to patient/family: Yes Post discharge follow-up plan: follow up with 1 week vna services for daily colostomy site packing changes Copies to: Dinorah FRANCIS,Ivonne
--- NOTE | 2017-10-27 12:55 | Admission Core Measures ---
Acute Coronary Syndrome (CM) ACS Core Measures Acute Coronary Syndrome Diagnosis No Congestive Heart Failure (NEW) CHF Core Measures Congestive Heart Failure Diagnosis No Cerebrovascular Accident (NEW) CVA Core Measures CVA/TIA Diagnosis No Venous Thromboembolism VTE Core Ajay (View Protocol) VTE Risk Factors Surgery No Mechanical VTE Prophylaxis d/t N/A MechProphylax Ordered No VTE Pharm Prophylaxis d/t NA PharmProphylax ordered Problem List As ranked by this Provider includes Assessment & Plan 1. History of colostomy reversal 2. Perforation of intestine due to diverticulitis of gastrointestinal tract HOME MEDS Home Med List No Known Home Medications
--- NOTE | 2017-10-27 12:58 | Patient Discharge Instructions ---
Discharge Instructions General Discharge Information You were seen/treated for: history of colostomy s/p perforated diverticulitis You had these procedures: laparoscopic colostomy reversal (10/27/17) Watch for these problems: fever>101.3, increased pain, redness/swelling/drainage, dizziness, shortness of breath, chest pains Call Surgeon to remove: Stitches No bath, but you may shower: Yes Other wound care: daily packing changes with 1/2 inch plain gauze to central portion of old colostomy site. keep incisions clean & dry. leave white steri strips in place. Diet Continue normal diet: Yes Recommended Diet: Low Residue Activity Full Activity/No Limits: No Activity Self Limited: Yes Pounds, do NOT lift more than: 10 Other activity limits: no heavy lifting. no strenuous activity. Acute Coronary Syndrome Inclusion Criteria At DC or during hospital stay patient has or had the following: ACS DIAGNOSIS No Discharge Core Measures Meds if any: Prescribed or Continued at Discharge Meds if any: NOT Prescribed or Continued at Discharge Congestive Heart Failure Inclusion Criteria At DC or during hospital stay patient has or had the following: CHF DIAGNOSIS No Discharge Core Measures Meds if any: Prescribed or Continued at Discharge Meds if any: NOT Prescribed or Continued at Discharge Cerebrovascular accident Inclusion Criteria At DC or during hospital stay patient has or had the following: CVA/TIA Diagnosis No Discharge Core Measures Meds if any: Prescribed or Continued at Discharge Meds if any: NOT Prescribed or Continued at Discharge Venous thromboembolism Inclusion Criteria VTE Diagnosis No VTE Type NONE VTE Confirmed by (Test) NONE Discharge Core Measures - Per Current guidelines, there needs to be overlap - treatment for the first 5 days of Warfarin therapy. - If discharged on Warfarin prior to 5 days of - overlap therapy, the patient will need to be - assessed for post discharge needs including - *Post discharge parental anticoagulation - *Warfarin and/or parental anticoagulation education - *Follow up date to check INR post discharge At least 5 days overlap therapy as Inpatient No Meds if any: Prescribed or Continued at Discharge Note: Overlap Therapy is Warfarin and Anticoagulant Meds if any: NOT Prescribed or Continued at Discharge
--- NOTE | 2017-10-27 13:29 | Operative Report ---
Operative/Inv Procedure Report Surgery Date: 10/27/17 Name of Procedure: Laparoscopic colostomy reversal with a colorectal anastomosis Pre-Operative Diagnosis: Diverticulitis s/p colostomy Post-Operative Diagnosis: Same Estimated Blood Loss: 50ml to 100ml Surgeon/Information Systems Operator: Alec Martinez DO, MD Anesthesia: general endotracheal tube IV Fluids: 1000 cc Drains: None Specimens: Portion sigmoid colon, anastomotic donuts Complications: None Condition: Stable Operative Indication: This is a 32-year-old female who is several months status post Francois's procedure for perforated diverticulitis. Patient presents for an elective laparoscopic possible open colostomy reversal. All risks including but not limited to bleeding, infection, anastomotic breakdown, and injury to surrounding structures were discussed in detail. The patient understood everything and decided to proceed. Operative/Procedure Note Note: Patient was brought to the operating room and placed on table in supine position. Venodyne stockings were placed and adequate general endotracheal anesthesia was obtained. Patient was placed in lithotomy and a Jose catheter was inserted. Colostomy site was sutured closed using 2-0 silk suture in a running fashion. Patient was prepped and draped in standard surgical fashion. A 2 cm incision was made in the midline just above the umbilicus. Incision was carried through the subcutaneous tissue to the fascia, once fascia was clearly visualized was picked up between 2 Lizette clamps and divided in the midline. 2 x 0 Vicryl sutures were placed on each side and a 12 mm blunt port was inserted. Abdominal cavity was insufflated to 15 mmHg and a 10 mm 30 laparoscope was introduced. Some omental adhesions were noted to the anterior abdominal wall. 5 mm port was placed in the right lateral position, 12 mm port in the right lower quadrant, and a 5 mm port in the left lateral position. Omental adhesions were taken down from anterior abdominal wall using Harmonic scalpel maintaining hemostasis. Colostomy was identified going up to the anterior abdominal wall and all the adhesions around the colon were lysed as well. Small bowel adhesions were lysed in the pelvis so the small bowel was brought out of the pelvis. Prolene sutures were noted left to sandra the rectal stump. Rectal stump was slightly mobilized. Descending colon and some of the splenic flexure was mobilized. There was adequate length for the descending colon to come down for the colorectal anastomosis. At that point an incision was made around the colostomy site which was circumferentially dissected down to the fascia. The colon was dissected away from the fascia so was brought out of the abdominal cavity. A portion of the descending colon was divided and then a 2-0 Prolene pursestring suture was placed and a 28 size anvil was placed in the colon and tied. All the fat was dissected off of the anastomosis site. At that point the colon was returned back into the abdominal cavity with the anvil and the fascia of the colostomy site was closed using 0 Vicryl suture. The abdominal cavity was reinsufflated and the descending colon was coming down to the rectum with no tension. At that point a 28 EEA was inserted through the rectum up to the rectal stump. The needle was opened, the anvil was attached to the needle and an anastomosis was created. The stapler was removed and 2 healthy/adequate donuts were noted. At that point using a rigid proctoscope a leak test was performed, no leak was noted. The pelvis was irrigated until clear. The anastomosis was examined, no obvious bleeding was noted. All ports were then removed under direct visualization, no bleeding was noted. Periumbilical site fascia was closed using 0 Vicryl suture. Skin was closed using 4-0 Monocryl. Colostomy site was approximated using 3-0 nylon sutures. The wound was packed between the sutures. Steri-Strips and dressings were placed. The patient was successfully extubated and transferred to the recovery room in stable condition. The patient tolerated procedure well with no complications. Findings: No obvious diverticulosis remaining, 28 EEA anastomosis, no leak CC: Dinorah FRANCIS,Ivonne
--- NOTE | 2017-10-27 16:25 | PN- General Surgery ---
Subjective Subjective: POC feeling ok, some abdominal soreness. no n/v. no cp/sob. no oob yet, no po intake yet. Objective Vital Signs and I&Os Intake & Output 10/27 1600 10/27 0800 10/27 0000 10/26 1600 10/26 0800 10/26 0000 Intake Total Output Total Balance Patient 145 lb Weight BP: 120/70 Physical Exam: GEN- NAD CARD- S1S2 RRR PULM- CTAB ABD- softly distended, ttp throughout, dressings intact- ostomy site dressing w serous staining, no bs EXT- calves soft nt bl, no edema Assessment/Plan Assessment/Plan A- 32F POD0 sp colostomy reversal, sp maxime's for perf'ef diverticulitis, stable, awaiting bowel fxn return. P- prn pain meds prn antiemetics IVF clrs as tolerated oob, ambulate, hep sq, alps monroy- dc in am await bowel fxn will dw attending Core Measures Venous Thromboembolism VTE Risk Factors Surgery No Mechanical VTE Prophylaxis d/t N/A MechProphylax Ordered No VTE Pharm Prophylaxis d/t NA PharmProphylax ordered
[2017-10-27 16:28] VITALS: BP 120/70
[2017-10-27 18:28] VITALS: BP 110/70
[2017-10-27 20:50] VITALS: BP 94/70
[2017-10-27 22:30] VITALS: BP 94/66
[2017-10-28 02:30] VITALS: BP 96/68
[2017-10-28 07:02] VITALS: BP 102/68
--- NOTE | 2017-10-28 07:37 | PN- General Surgery ---
See Addendum Subjective Subjective: Awake, alert This morning complained of some substernal chest pain after ambulating - described as moving across her chest mostly at the shoulders, not associated with sob, diaphoresis or palpitations. Self limiting - she had a similar sensation post op as well as after her previous surgery and gets admittedly anxious. Currently she is having no pain and has no residual symptoms. Stat EKG was performed which is normal sinus without any changes - unchanged from post op. Troponin was added to AM labs. +flatus, no bm, tolerating liquids without pain or nausea Objective Vital Signs and I&Os Vital Signs Date Time Temp Pulse Resp B/P B/P Pulse O2 O2 Flow FiO2 Mean Ox Delivery Rate 10/28 0702 98.4 68 16 102/68 97 Room Air 10/28 0230 98.1 64 16 96/68 98 Room Air 10/27 2230 98.1 58 20 94/66 97 Room Air 10/27 2200 97 Room Air 10/27 2050 97.7 60 20 94/70 95 Room Air 10/27 1856 Room Air 10/27 1828 98.0 54 18 110/70 96 Room Air 10/27 1628 97.8 85 20 120/70 97 Room Air Intake & Output 10/28 0800 10/28 0000 10/27 1600 10/27 0800 10/27 0000 10/26 1600 Intake Total 250 Output Total 900 Balance -650 Intake, Oral 250 Output, Urine 900 Patient 161 lb 140 lb 145 lb Weight Weight Bed scale Reported by Patient Measurement Method Physical Exam: vss, afebrile monroy just removed, await void General: alert and oriented times three Chest: clear bilaterally, no rales/rhonchi/wheezes, RRR - no murmurs/rubs Abd: soft, good bowel sounds, nondistended Wd: dressing intact Ext: warm, no edema, no calf tenderness Assessment/Plan Assessment/Plan 32yo female s/p colostomy reversal pod 1 follow up void follow up labs ?advance diet - will discuss with Dr Martinez pain management - add percocet for po option hep sc for dvt ppx Core Measures Venous Thromboembolism VTE Risk Factors Surgery No Mechanical VTE Prophylaxis d/t N/A MechProphylax Ordered No VTE Pharm Prophylaxis d/t NA PharmProphylax ordered
[2017-10-28 08:36] LABS: ABSOLUTE BASOPHIL COUNT 0 /CUMM (0.0-0.2); ABSOLUTE EOSINOPHIL COUNT 0 /CUMM (0.0-0.7); ABSOLUTE GRANULOCYTE CT 10.2 /CUMM (1.4-6.5); ABSOLUTE LYMPH COUNT 1.5 /CUMM (1.2-3.4); ABSOLUTE MONOCYTE COUNT 0.9 /CUMM (0.10-0.60); BASOPHIL % 0.2 % (0.0-2.0); EOSINOPHIL % 0.1 % (0-5); GRANULOCYTE % 80.7 % (42.2-75.2); HEMATOCRIT 31.9 % (37-47); MEAN CORPUSCULAR HGB 30.8 PG (27.0-31.0); MEAN CORPUSCULAR HGB CONC 34.2 G/DL (33.0-37.0); MEAN CORPUSCULAR VOLUME 90.2 FL (81.0-99.0); MEAN PLATELET VOLUME 9.2 FL (7.4-10.4); PLATELET COUNT 224 /CUMM (130-400); RBC DISTRIBUTION WIDTH 12.7 % (11.5-14.5); RED BLOOD CELL CT 3.54 /CUMM (4.20-5.40); WHITE BLOOD CELL COUNT 12.6 /CUMM (4.8-10.8)
[2017-10-28 10:37] VITALS: BP 120/70
[2017-10-28 14:26] VITALS: BP 120/70
[2017-10-28 16:27] VITALS: BP 104/60
[2017-10-28 22:18] VITALS: BP 98/62
[2017-10-29 06:00] VITALS: BP 114/82
--- NOTE | 2017-10-29 09:54 | PN- General Surgery ---
Subjective Subjective: Reports tolerating fulls. Currently no nausea. She is eager to try food. Reports several bloody bms and passing some flatus. Ambulating without difficulty. No dizziness. No shortness of breath. No chest pains. Pain controlled with percocet. Voiding well. Interested in vna services for packing changes at home. Anticipates discharge to home later today if tolerating diet. Objective Vital Signs and I&Os Vital Signs Date Time Temp Pulse Resp B/P B/P Pulse O2 O2 Flow FiO2 Mean Ox Delivery Rate 10/29 06 98.3 68 16 114/82 97 Room Air 10/28 2218 98.2 59 20 98/62 98 Room Air 10/28 2200 Room Air 10/28 1627 98.5 62 20 104/60 98 Room Air 10/28 1426 98.3 61 20 120/70 98 10/28 1400 Room Air 10/28 1037 98.4 67 20 120/70 99 Intake & Output 10/29 1600 10/29 0800 10/29 0000 10/28 1600 10/28 0800 10/28 0000 Intake Total 250 335 746 9815 250 Output Total 900 Balance 250 382 397 0481 -650 Intake, IV 10 1000 Intake, Oral 240 480 480 300 250 Number 1 1 3 Bowel Movements Output, Urine 900 Patient 161 lb 140 lb Weight Weight Bed scale Reported by Patient Measurement Method Physical Exam: General - alert & oriented x 3. comfortable. no acute distress. Lungs - clear bilaterally. no w/r/r. Cardiac - s1s2. reg. Abdomen - soft. colostomy site dressing removed and packing remove / changed. interupted stitches in place. no surrounding erythema or exudates. expected ilsa -incisional tenderness. Extremities - warm bilaterally. no c/c/e. calves soft and nontender b/l. Current Medications: Current Medications Sig/Nichol Start time Last Medication Dose Route Stop Time Status Admin Acetaminophen 1,000 MG Q6H 10/27 1615 DC 10/28 N/A 1 UNIT IV 10/28 1029 0926 Docusate Sodium 100 MG BID 10/29 1015 UNVr PO Heparin Sodium 5,000 UNIT Q8 10/27 2200 AC 10/29 (Porcine) SC 0633 Morphine Sulfate 2 MG Q4-6 PRN PRN 10/28 629 AC 10/28 IV 0628 Morphine Sulfate 4 MG Q4-6 PRN PRN 10/28 0630 AC 10/28 IV 1406 Morphine Sulfate 6 MG Q4-6 PRN PRN 10/28 0630 AC IV Ondansetron HCl 4 MG Q6P PRN 10/27 1615 AC 10/28 IV 1632 Oxycodone/ 1 TAB Q4P PRN 10/28 0730 AC 10/28 Acetaminophen PO 1214 Oxycodone/ 2 TAB Q4P PRN 10/28 0730 AC 10/29 Acetaminophen PO 0923 Patient Medication 1 ED ONE ONE 10/28 1430 DC 10/28 Teaching ED 10/28 1431 1723 Results Last 48 Hours of Labs: Laboratory Tests 10/29 10/28 10/28 0940 0735 0735 Chemistry Sodium (137 - 145 mmol/L) Pending 140 Potassium (3.5 - 5.1 mmol/L) Pending 3.8 Chloride (98 - 107 mmol/L) Pending 107 Carbon Dioxide (22 - 30 mmol/L) Pending 21 L Anion Gap (5 - 16) Pending 12 BUN (7 - 17 mg/dL) Pending 4 L Creatinine (0.5 - 1.0 mg/dL) Pending 0.6 Estimated GFR (>60 ml/min) > 60 BUN/Creatinine Ratio (7 - 25 %) Pending 6.7 L Troponin I (< 0.11 ng/ml) Cancelled < 0.01 Hematology CBC w Diff Pending NO MAN DIFF REQ WBC (4.8 - 10.8 /CUMM) Pending 12.6 H RBC (4.20 - 5.40 /CUMM) Pending 3.54 L Hgb (12.0 - 16.0 G/DL) Pending 10.9 L Hct (37 - 47 %) Pending 31.9 L MCV (81.0 - 99.0 FL) Pending 90.2 MCH (27.0 - 31.0 PG) Pending 30.8 MCHC (33.0 - 37.0 G/DL) Pending 34.2 RDW (11.5 - 14.5 %) Pending 12.7 Plt Count (130 - 400 /CUMM) Pending 224 MPV (7.4 - 10.4 FL) Pending 9.2 Gran % (42.2 - 75.2 %) 80.7 H Lymphocytes % (20.5 - 51.1 %) 11.6 L Monocytes % (1.7 - 9.3 %) 7.4 Eosinophils % (0 - 5 %) 0.1 Basophils % (0.0 - 2.0 %) 0.2 Absolute Granulocytes (1.4 - 6.5 /CUMM) 10.2 H Absolute Lymphocytes (1.2 - 3.4 /CUMM) 1.5 Absolute Monocytes (0.10 - 0.60 /CUMM) 0.9 H Absolute Eosinophils (0.0 - 0.7 /CUMM) 0 Absolute Basophils (0.0 - 0.2 /CUMM) 0 Assessment/Plan Assessment/Plan This 32 year old female POD#2 s/p laparoscopic colostomy reversal with a colorectal anastomosis for hx diverticulitis s/p colostomy tolerating fulls. advance to low residue diet pain controlled with percocet colace added BID hep sc - dvt ppx oob/ambulating without difficulty colostomy site dressing changed case management called to set up vna services for daily dressing changes f/u cbc this morning possible d/c home later today if tolerating food and cbc stable d/w Core Measures Venous Thromboembolism VTE Risk Factors Surgery No Mechanical VTE Prophylaxis d/t N/A MechProphylax Ordered No VTE Pharm Prophylaxis d/t NA PharmProphylax ordered
[2017-10-29] MEDS ORDERED: DOCUSATE SODIU100 M3 PO (10:16)
[2017-10-29] MEDS ORDERED: PERCOCET 5-3251 EACH PO (10:16)
[2017-10-29 11:06] LABS: ABSOLUTE BASOPHIL COUNT 0.1 /CUMM (0.0-0.2); ABSOLUTE EOSINOPHIL COUNT 0 /CUMM (0.0-0.7); ABSOLUTE GRANULOCYTE CT 7.7 /CUMM (1.4-6.5); ABSOLUTE LYMPH COUNT 1.6 /CUMM (1.2-3.4); ABSOLUTE MONOCYTE COUNT 0.4 /CUMM (0.10-0.60); BASOPHIL % 0.9 % (0.0-2.0); EOSINOPHIL % 0.4 % (0-5); GRANULOCYTE % 78.5 % (42.2-75.2); MEAN CORPUSCULAR HGB 30.6 PG (27.0-31.0); MEAN CORPUSCULAR VOLUME 90.1 FL (81.0-99.0); MEAN PLATELET VOLUME 9.6 FL (7.4-10.4); PLATELET COUNT 198 /CUMM (130-400); RBC DISTRIBUTION WIDTH 12.5 % (11.5-14.5); RED BLOOD CELL CT 3.55 /CUMM (4.20-5.40); WHITE BLOOD CELL COUNT 9.8 /CUMM (4.8-10.8)
[2017-10-29 14:48] VITALS: BP 100/70
== END 2017-10-29 15:15 | disposition home health service (06) | DRG 223 ==
LOC: 2NA 04:15 → SDA 04:15 → ENRESERV 14:30 → ENTRNSPT 15:38 → EDTRNSPT 15:52 → EDTRNSPTSTS 15:52 → 2NA 15:59 → CMPTRNSPT 16:10 → 2NA 10-29 15:15
PROVIDERS: Physician Assistant
PROC: 0DBN4ZX Excision of Sigmoid Colon, Percutaneous Endoscopic Approach, Diagnostic (ICD-10-PCS; principal; 2017-10-27)
PROC: 0DQM4ZZ Repair Descending Colon, Percutaneous Endoscopic Approach (ICD-10-PCS; principal; 2017-10-27)
DX: Z43.3 Encounter for attention to colostomy (principal); G43.909 Migraine, unspecified, not intractable, without status migrainosus; K57.20 Diverticulitis of large intestine with perforation and abscess without bleeding
CPT/HCPCS: 2NAP; 36415; 36592; 82436; 87086; 88304; 88307; 93005; 93010; C9399; J0131; J0690; J1644; J2405; J7042

== ENCOUNTER 2017-11-16 17:01 | Emergency (ER) | payer OTHER ==
[~2017-11-16] VITALS: Ht 165.1 cm; Wt 68.0 kg
[2017-11-16 18:03] VITALS: BP 105/72
[2017-11-16 18:23] LABS: ABSOLUTE BASOPHIL COUNT 0 /CUMM (0.0-0.2); ABSOLUTE EOSINOPHIL COUNT 0.2 /CUMM (0.0-0.7); ABSOLUTE GRANULOCYTE CT 5.5 /CUMM (1.4-6.5); ABSOLUTE LYMPH COUNT 2.4 /CUMM (1.2-3.4); ABSOLUTE MONOCYTE COUNT 0.5 /CUMM (0.10-0.60); BASOPHIL % 0.3 % (0.0-2.0); EOSINOPHIL % 1.9 % (0-5); GRANULOCYTE % 63.6 % (42.2-75.2); HEMATOCRIT 36.5 % (37-47); MEAN CORPUSCULAR HGB 30.4 PG (27.0-31.0); MEAN CORPUSCULAR HGB CONC 33.7 G/DL (33.0-37.0); MEAN CORPUSCULAR VOLUME 90.1 FL (81.0-99.0); MEAN PLATELET VOLUME 8.3 FL (7.4-10.4); PLATELET COUNT 292 /CUMM (130-400); RBC DISTRIBUTION WIDTH 12.9 % (11.5-14.5); RED BLOOD CELL CT 4.05 /CUMM (4.20-5.40); WHITE BLOOD CELL COUNT 8.7 /CUMM (4.8-10.8)
== END 2017-11-16 19:53 | disposition admitted as inpatient to this hospital (09) ==
LOC: ERH 17:01
PROVIDERS: Physician Assistant Medical
DX: R10.31 Right lower quadrant pain (principal)
CPT/HCPCS: 81003; 99281